=== PATIENT | male | born 1955 | race African-American/Black ===

== ENCOUNTER 2020-04-20 13:53 | Inpatient (IN) | payer MEDICARE, OTHER ==
[~2020-04-20] VITALS: Ht 165.1 cm; Wt 99.8 kg
[2020-04-20] MEDS: InsuLIN REG 1unit/0.01ml Soln (100units/ml) SC SCH (01:00)
[2020-04-20] MEDS: ENOXAPARIN SOD 100 MG/1 ML SYRINGE SC SCH (02:30)
[2020-04-20] MEDS: FAMOTIDINE 20 MG TAB PO SCH (02:30)
[2020-04-20 15:00] LABS: Basophils # (auto) 0.1 10 ^3/uL (0-0.2); Basophils % (auto) 0.6 % (0.0-2.0); Eosinophils # (auto) 0.1 10 ^3/uL (0-0.8); Eosinophils % (auto) 0.5 % (0.0-7.0); Hemoglobin 15.8 g/dL (13.5-17.5); Lymphocytes # (auto) 0.8 10 ^3/uL (0.4-5.4); Lymphocytes % (auto) 8.5 % (10.0-50.0); Mean Corpuscular Hemoglobin 31.1 pg (28.0-32.0); Mean Corpuscular Hgb Conc. 33.6 g/dL (32.0-36.0); Mean Corpuscular Volume 92.4 fL (80.0-100.0); Monocytes # (auto) 0.5 10 ^3/uL (0-1.3); Monocytes % (auto) 5.2 % (0.0-12.0); Neutrophils # (auto) 8.1 10 ^3/uL (1.6-8.6); Neutrophils % (auto) 85.2 % (37.0-80.0); Platelet Count (auto) 281 10^3/uL (140-450); Red Blood Cells 5.09 10^6/uL (4.5-5.90); Red Cell Distribution Width 14.6 % (11.8-14.3); White Blood Cell 9.5 10^3/uL (4.4-10.8)
[2020-04-20 15:17] LABS: INR 1.03 (0.9-1.15); Partial Thromboplastin Time 27.8 sec (23.0-31.2)
[2020-04-20 15:19] LABS: Albumin 3.8 g/dL (3.4-5.0); Calcium 8.9 mg/dL (8.5-10.1); Potassium 3.6 mmol/L (3.5-5.1)
[2020-04-20 15:26] LABS: BUN/Creatinine Ratio 6.8; Bilirubin, Total 0.3 mg/dL (0.2-1.0); Total Protein 7.2 g/dL (6.4-8.2)
[2020-04-20] MEDS ORDERED: ASPirin-EC 81 mg tab PO ONE (16:15)
[2020-04-20] MEDS ORDERED: METOPROLOL TARTRATE 1MG/1ML-5ML VIAL IV ONE (19:00)
[2020-04-20] MEDS ORDERED: METOPROLOL TARTRATE 25 MG TAB PO ONE (19:00)
[2020-04-20] MEDS ORDERED: NITROGLYCERIN 50MG/250ML 250 ML IV SCH (19:00)
[2020-04-20] MEDS ORDERED: traMADol HCL 50 MG TAB PO PRN (19:00)
[2020-04-20] MEDS ORDERED: NITROGLYCERIN 0.4 MG SL TAB SL PRN (19:00)
[2020-04-20] MEDS ORDERED: PROMETHAZINE HCL 25 MG/ML 1ML IV PRN (19:00)
[2020-04-20] MEDS ORDERED: TEMAZEPAM 15 MG CAP PO PRN (19:00)
[2020-04-20] MEDS ORDERED: NITROGLYCERIN 50MG/250ML 250 ML IV ONE (19:00)
[2020-04-20] MEDS ORDERED: LACTULOSE 20Gm/30ML SOLN PO PRN (19:00)
[2020-04-20] MEDS ORDERED: ACETAMINOPHEN 500 MG TAB PO PRN (19:00)
[2020-04-20] MEDS ORDERED: MORPHINE SULF INJ 2 MG/ML SYRINGE 1ML IV PRN ×2 (19:00)
[2020-04-20] MEDS ORDERED: DEXTROSE (50%) 50ML SYRG IV PRN (19:00)
[2020-04-20] MEDS: METOPROLOL TARTRATE 25 MG TAB PO SCH (22:00)
[2020-04-21] MEDS: ENOXAPARIN SOD 100 MG/1 ML SYRINGE SC SCH (02:48)
[2020-04-21 05:52] LABS: Basophils # (auto) 0.1 10 ^3/uL (0-0.2); Basophils % (auto) 0.8 % (0.0-2.0); Eosinophils # (auto) 0.1 10 ^3/uL (0-0.8); Eosinophils % (auto) 1.4 % (0.0-7.0); Hematocrit 45.3 % (41.0-53.0); Hemoglobin 14.7 g/dL (13.5-17.5); Lymphocytes # (auto) 2.4 10 ^3/uL (0.4-5.4); Lymphocytes % (auto) 28.5 % (10.0-50.0); Mean Corpuscular Hemoglobin 30.2 pg (28.0-32.0); Mean Corpuscular Hgb Conc. 32.3 g/dL (32.0-36.0); Mean Corpuscular Volume 93.5 fL (80.0-100.0); Monocytes # (auto) 0.8 10 ^3/uL (0-1.3); Monocytes % (auto) 9.3 % (0.0-12.0); Neutrophils # (auto) 5.1 10 ^3/uL (1.6-8.6); Nucleated Red Blood Cells % 0.1 %; Platelet Count (auto) 285 10^3/uL (140-450); Red Blood Cells 4.85 10^6/uL (4.5-5.90); Red Cell Distribution Width 14.8 % (11.8-14.3); White Blood Cell 8.5 10^3/uL (4.4-10.8)
[2020-04-21 06:11] LABS: Potassium 3.5 mmol/L (3.5-5.1)
[2020-04-21 06:48] LABS: Albumin 3.4 g/dL (3.4-5.0); BUN/Creatinine Ratio 8.9; Bilirubin, Total 0.4 mg/dL (0.2-1.0); Calcium 8.7 mg/dL (8.5-10.1); Total Protein 6.6 g/dL (6.4-8.2)
[2020-04-21] MEDS: ATORVASTATIN 20 MG TAB PO SCH ×2 (06:57→08:21)
[2020-04-21 07:30] VITALS: BP 138/66
[2020-04-21 08:10] LABS: Alcohol, Urine < 3.0 mg/dL (0-10); Barbiturate Scree,Urine NEGATIVE (NEGATIVE); Benzodiazephine Screen, Urine NEGATIVE (NEGATIVE); Cannabinoid Screen, Urine NEGATIVE (NEGATIVE); Cocaine Screen, Urine NEGATIVE (NEGATIVE); Opiate Scree,Urine NEGATIVE (NEGATIVE); Phencyclidine Screen, Urine NEGATIVE (NEGATIVE)
[2020-04-21 08:14] LABS: Amphetamine Screen, Urine NEGATIVE (NEGATIVE)
[2020-04-21] MEDS: ACCU-CHEK COMFORT CURVE STRIP VI SCH ×2 (08:21→08:41)
[2020-04-21] MEDS: InsuLIN REG 1unit/0.01ml Soln (100units/ml) SC SCH (08:41)
[2020-04-21] MEDS ORDERED: ENALAPRIL MALEATE 2.5 MG TAB PO SCH (10:00)
[2020-04-21] MEDS ORDERED: ASPirin 81 mg TAB PO SCH (10:00)
[2020-04-21] MEDS: METOPROLOL TARTRATE 25 MG TAB PO SCH (10:40)
[2020-04-21] MEDS: FAMOTIDINE 20 MG TAB PO SCH (10:40)
== END 2020-04-21 11:00 | disposition left against medical advice (07) | DRG 282 ==
LOC: EDBD 13:53 → ER 13:53 → TELE 18:56
PROVIDERS: ADMIT Internal Medicine; ATTEND Internal Medicine
DX: I21.4 Non-ST elevation (NSTEMI) myocardial infarction (principal); I16.0 Hypertensive urgency; I48.91 Unspecified atrial fibrillation; E78.5 Hyperlipidemia, unspecified; E66.01 Morbid (severe) obesity due to excess calories; F41.9 Anxiety disorder, unspecified; I50.9 Heart failure, unspecified; Z68.36 Body mass index [BMI] 36.0-36.9, adult; Z82.49 Family history of ischemic heart disease and other diseases of the circulatory system; Z83.3 Family history of diabetes mellitus; Z53.29 Procedure and treatment not carried out because of patient's decision for other reasons; E11.9 Type 2 diabetes mellitus without complications; I11.0 Hypertensive heart disease with heart failure; E11.65 Type 2 diabetes mellitus with hyperglycemia
CPT/HCPCS: 36415; 71045; 80053; 80061; 80307; 82550; 82962; 83036; 83880; 84443; 84484; 85025; 85379; 85610; 85652; 85730; 86141; 93005; G0378; J1815

== ENCOUNTER 2020-04-22 11:16 | Inpatient (IN) | payer MEDICARE, OTHER ==
[~2020-04-22] VITALS: Ht 165.1 cm; Wt 108.0 kg
[2020-04-22 12:44] LABS: CRP High Sensitivity 0.12 mg/dL (< 0.3)
[2020-04-22] MEDS ORDERED: ONDANSETRON HCL 4 MG/2 ML VIAL IV PRN (16:00)
[2020-04-22] MEDS ORDERED: IPRATROPIUM BROM 0.5 MG/2.5ML INH SOL NEB PRN (16:00)
[2020-04-22] MEDS ORDERED: hydrALAZINE HCL 20 MG/ML VL IV PRN (16:00)
[2020-04-22] MEDS ORDERED: HYDROcodone-ACET 5/325MG TAB PO PRN (16:00)
[2020-04-22] MEDS ORDERED: ACETAMINOPHEN 500 MG TAB PO PRN (16:00)
[2020-04-22] MEDS ORDERED: ALBUTEROL SULF 2.5 MG/0.5ML(0.5%) NEB SOLN NEB PRN (16:00)
[2020-04-22] MEDS ORDERED: NITROGLYCERIN 0.4 MG SL TAB SL PRN (16:00)
[2020-04-22] MEDS ORDERED: MORPHINE SULF INJ 2 MG/ML SYRINGE 1ML IV PRN ×2 (16:00)
[2020-04-23] VITALS (7 sets, daily range): BP systolic 126–152; BP diastolic 58–73
[2020-04-23 00:21] LABS: Basophils # (auto) 0.1 10 ^3/uL (0-0.2); Basophils % (auto) 1.7 % (0.0-2.0); Eosinophils # (auto) 0.2 10 ^3/uL (0-0.8); Hematocrit 45.3 % (41.0-53.0); Hemoglobin 15.1 g/dL (13.5-17.5); Lymphocytes # (auto) 2.5 10 ^3/uL (0.4-5.4); Mean Corpuscular Hemoglobin 30.9 pg (28.0-32.0); Mean Corpuscular Hgb Conc. 33.3 g/dL (32.0-36.0); Mean Corpuscular Volume 92.9 fL (80.0-100.0); Monocytes # (auto) 0.8 10 ^3/uL (0-1.3); Monocytes % (auto) 9.3 % (0.0-12.0); Neutrophils # (auto) 5.2 10 ^3/uL (1.6-8.6); Nucleated Red Blood Cells % 0.1 %; Platelet Count (auto) 269 10^3/uL (140-450); Red Blood Cells 4.87 10^6/uL (4.5-5.90); Red Cell Distribution Width 14.7 % (11.8-14.3); White Blood Cell 8.8 10^3/uL (4.4-10.8)
[2020-04-23] MEDS: ATORVASTATIN 20 MG TAB PO SCH ×2 (00:26→22:33)
[2020-04-23 00:40] LABS: BUN/Creatinine Ratio 9.7; Potassium 3.5 mmol/L (3.5-5.1)
[2020-04-23 00:41] LABS: Albumin 3.7 g/dL (3.4-5.0); Calcium 8.4 mg/dL (8.5-10.1)
[2020-04-23 00:45] LABS: Bilirubin, Total 0.4 mg/dL (0.2-1.0); Total Protein 7.2 g/dL (6.4-8.2)
--- NOTE | 2020-04-23 02:25 | NUR ---
Telemetry admit from ROSARIO TABOR admitted to Telemetry unit after NO SBAR received. Patient oriented to Jluis conrad RN, [facility] unit, 272 room, A bed, and unit policies regarding patient care and visiting hours. Patient now on continuous telemetry monitoring, tele box #63 and telemetry reading on arrival to unit is SINUS RHYTHM. Patient placed on bedside oxygen, weighed by bedscale and encouraged to call if they need something. All questions and concerns addressed, patient verbalized understanding. Note:
--- NOTE | 2020-04-23 03:41 | NUR ---
paged hospitalist to notify of patient requesting cpap machine for his sleep apnea.
[2020-04-23] MEDS ORDERED: ALBUAER3 IN (04:59)
--- NOTE | 2020-04-23 06:05 | NUR ---
PT ASSESSED FOR PRN TX. PT IS ON ROOM AIR, SPO2 92%, HR 76. NO S/S OF RESPIRATORY DISTRESS. PT AWARE TO HAVE RT PAGED IF NEEDED.
--- NOTE | 2020-04-23 07:30 | NUR ---
Opening Shift Note Report received and Assumed care of patient,awake,alert and oriented. No S/S of distress/SOB or pain. Instructed on POC,call light within reach,patient reminded instructed to call for assistance,verbalized understanding,will continue to monitor for changes Q1hr and PRN.
[2020-04-23] MEDS: ASPirin-EC 81 mg tab PO SCH (10:18)
[2020-04-23] MEDS: ENOXAPARIN SOD 40 MG/0.4 ML SYRINGE SC SCH (10:18)
[2020-04-23] MEDS: FAMOTIDINE 20 MG TAB PO SCH (10:18)
[2020-04-23] MEDS: LISINOPRIL 10 MG TAB PO SCH (10:19)
[2020-04-23 12:01] LABS: Basophils # (auto) 0.1 10 ^3/uL (0-0.2); Basophils % (auto) 0.7 % (0.0-2.0); Eosinophils # (auto) 0.1 10 ^3/uL (0-0.8); Eosinophils % (auto) 1.4 % (0.0-7.0); Hematocrit 44.8 % (41.0-53.0); Hemoglobin 14.8 g/dL (13.5-17.5); Lymphocytes # (auto) 1.8 10 ^3/uL (0.4-5.4); Mean Corpuscular Hemoglobin 30.6 pg (28.0-32.0); Mean Corpuscular Volume 92.7 fL (80.0-100.0); Monocytes # (auto) 0.8 10 ^3/uL (0-1.3); Monocytes % (auto) 8.9 % (0.0-12.0); Neutrophils # (auto) 6.2 10 ^3/uL (1.6-8.6); Nucleated Red Blood Cells % 0.2 %; Platelet Count (auto) 267 10^3/uL (140-450); Red Blood Cells 4.83 10^6/uL (4.5-5.90); Red Cell Distribution Width 14.4 % (11.8-14.3)
--- NOTE | 2020-04-23 12:15 | NUR ---
MD VISIT DR. Rosie MISTRY HERE TO SEE AND EXAMINED PATIENT,CARDIOLOGY CONSULT RE CALLED WITH DR. FORTUNE (DONE BY CHAIN TESTING MACHINE OPERATOR)
[2020-04-23 12:20] LABS: BUN/Creatinine Ratio 9.9; Calcium 9.2 mg/dL (8.5-10.1); Potassium 3.9 mmol/L (3.5-5.1)
--- NOTE | 2020-04-23 16:05 | NUR ---
DR. FORTUNE CALLED STATED UNABLE TO SEE THE PATIENT
--- NOTE | 2020-04-23 16:10 | NUR ---
FERNANDO CARDIOLOGY THERMAL SPRAY OPERATOR INFORMED WILL BE HERE TO SEE PATIENT
--- NOTE | 2020-04-23 16:26 | NUR ---
Zaid JAIMES RUG REPAIRER HERE TO SEE AND EXAMINED PATIENT,DISCUSSED PLAN OF CARE AND HEART CATH PROCEDURE IN A.M.
--- NOTE | 2020-04-23 22:00 | NUR ---
Patient refused to sign consents for heart cath, patient wants to know whats risks are involved with procedure before signing anything.
[2020-04-23] MEDS: METOPROLOL TARTRATE 25 MG TAB PO SCH (22:34)
[2020-04-24] VITALS (9 sets, daily range): BP systolic 108–145; BP diastolic 55–72
[2020-04-24 05:17] LABS: Urine Bacteria FEW /hpf (None Seen); Urine Blood Negative /uL (Negative); Urine Mucus FEW (None Seen); Urine Specific Gravity 1.013 (1.001-1.035); Urine WBC 2 /hpf (0 - 3)
--- NOTE | 2020-04-24 07:30 | NUR ---
Opening Shift Note Report received and Assumed care of patient,awake,alert and oriented. No S/S of distress/SOB or pain. Instructed on POC,heart cath procedure,NPO for expected procedure,call light within reach,patient reminded instructed to call for assistance,verbalized understanding,will continue to monitor for changes Q1hr and PRN.
[2020-04-24 07:50] LABS: INR 1.06 (0.9-1.15); Partial Thromboplastin Time 28.8 sec (23.0-31.2)
[2020-04-24 07:53] LABS: Calcium 8.9 mg/dL (8.5-10.1); Potassium 3.7 mmol/L (3.5-5.1)
[2020-04-24 07:54] LABS: BUN/Creatinine Ratio 10.4; Basophils # (auto) 0.1 10 ^3/uL (0-0.2); Basophils % (auto) 0.9 % (0.0-2.0); Eosinophils # (auto) 0.2 10 ^3/uL (0-0.8); Eosinophils % (auto) 2.3 % (0.0-7.0); Hematocrit 44.4 % (41.0-53.0); Hemoglobin 14.7 g/dL (13.5-17.5); Lymphocytes # (auto) 1.8 10 ^3/uL (0.4-5.4); Lymphocytes % (auto) 26.2 % (10.0-50.0); Mean Corpuscular Hemoglobin 30.6 pg (28.0-32.0); Mean Corpuscular Volume 92.7 fL (80.0-100.0); Monocytes # (auto) 0.7 10 ^3/uL (0-1.3); Monocytes % (auto) 9.7 % (0.0-12.0); Neutrophils # (auto) 4.2 10 ^3/uL (1.6-8.6); Neutrophils % (auto) 60.9 % (37.0-80.0); Nucleated Red Blood Cells % 0.1 %; Platelet Count (auto) 256 10^3/uL (140-450); Red Cell Distribution Width 14.5 % (11.8-14.3); White Blood Cell 6.8 10^3/uL (4.4-10.8)
--- NOTE | 2020-04-24 09:20 | NUR ---
PATIENT TRANSPORTED TO [facility] VIA BED REPORT GIVEN TO DANIEL GIBSON
--- NOTE | 2020-04-24 09:25 | NUR ---
DR. KNOX AT BEDSIDE SPOKE TO PATIENT AND EXPLAIN PROCEDURE RISK AND BENEFITS PATIENT VERBALIZED UNDERSTANDING,CONSENT SIGNED BY PATIENT.
[2020-04-24] MEDS ORDERED: IOHEXOL 350 MG/ML 100ML IJ ONE (09:39)
[2020-04-24] MEDS ORDERED: LIDOCAINE 2%HCL (LOCAL ANESTH.) INJ 20ML MDV ONE (09:39)
[2020-04-24] MEDS: ENOXAPARIN SOD 40 MG/0.4 ML SYRINGE SC SCH (10:00)
[2020-04-24] MEDS ORDERED: VERAPAMIL 2.5MG/ML INJ 2ML VIAL IV ONE (10:02)
[2020-04-24] MEDS ORDERED: fentaNYL CITRATE 100 MCG/2 ML VL ONE (10:02)
[2020-04-24] MEDS ORDERED: ANGIOMAX 250 MG VIAL IV ONE (10:02)
[2020-04-24] MEDS ORDERED: MIDAZOLAM HCL 1MG/1ML-2 ML VIAL ONE (10:03)
[2020-04-24] MEDS ORDERED: HEPARIN SODIUM (PORCINE) 5000 UNITS/ML 1ML VIAL ONE (10:03)
[2020-04-24] MEDS ORDERED: SODIUM CHL 0.9% 0 ML ONE (10:03)
--- NOTE | 2020-04-24 10:45 | NUR ---
Pt. received in Clinical Trial Head Post-Op awake and oriented to person, place and event. Respirations even and unlabored. VASC band intact on RIGHT wrist with no visible bleeding or oozing noted. Palpable RIGHT radial pulse, states has intermittent minimal numbness and tingling to RIGHT hand. Instructed re: importance of keeping RIGHT forearm rested. IV to LEFT hand intact; site benign. Pt. instructed re: procedure outcome and plan of care; verbalized understanding and is compliant. Currently denies discomfort, NAD noted.
--- NOTE | 2020-04-24 11:00 | NUR ---
RIGHT wrist VASC band unchanged with no visible bleeding or oozing noted. Palpable RIGHT radial pulse, denies numbness or tingling to RIGHT hand. Keeps RIGHT forearm rested as instructed. Tolerates water well. Currently denies discomfort, NAD noted.
--- NOTE | 2020-04-24 11:23 | NUR ---
RIGHT wrist VASC band unchanged and benign. Currently denies discomfort. Pt. is stable for transfer back to room. SBAR report given to Mariely James RN
--- NOTE | 2020-04-24 11:25 | NUR ---
REPORT RECEIVED FROM FRANCIA GIBSON S/P HEART CATH
--- NOTE | 2020-04-24 11:35 | NUR ---
PATIENT RECEIVED FROM PACU,VIA BED ACCOMPANIED BY WASTE WATER PLANT OPERATOR,RIGHT WRIST VASC IN PLACE,no visible bleeding or oozing noted. Palpable RIGHT radial pulse, denies numbness or tingling to RIGHT hand. Keeps RIGHT forearm rested as instructed. denies chest pain,no discomfort.
--- NOTE | 2020-04-24 11:35 | NUR ---
REMOVED 2 ML OF AIR FROM VASC BAND,NO BLEEDING ,WITH ADEQUATE CIRCULATION,SENSATION AND MOTOR FUNCTION NOTED
--- NOTE | 2020-04-24 11:40 | NUR ---
Pt. remains stable for transfer. Transported back to room via bed with assist by skyla Arroyo. Pt. endorsed to Mariely James RN.
--- NOTE | 2020-04-24 11:50 | NUR ---
REMOVED 2 ML OF AIR FROM VASC BAND,NO BLEEDING ,WITH ADEQUATE CIRCULATION,SENSATION AND MOTOR FUNCTION NOTED
--- NOTE | 2020-04-24 12:05 | NUR ---
REMOVED 2 ML OF AIR FROM VASC BAND,NO BLEEDING ,WITH ADEQUATE CIRCULATION,SENSATION AND MOTOR FUNCTION NOTED
--- NOTE | 2020-04-24 12:20 | NUR ---
REMOVED 2 ML OF AIR FROM VASC BAND,NO BLEEDING ,WITH ADEQUATE CIRCULATION,SENSATION AND MOTOR FUNCTION NOTED
--- NOTE | 2020-04-24 12:35 | NUR ---
REMOVED 2 ML OF AIR FROM VASC BAND,NO BLEEDING ,WITH ADEQUATE CIRCULATION,SENSATION AND MOTOR FUNCTION NOTED
[2020-04-24] MEDS: ASPirin-EC 81 mg tab PO SCH (12:39)
[2020-04-24] MEDS: METOPROLOL TARTRATE 25 MG TAB PO SCH ×2 (12:41→21:54)
[2020-04-24] MEDS: FAMOTIDINE 20 MG TAB PO SCH (12:41)
[2020-04-24] MEDS: LISINOPRIL 10 MG TAB PO SCH (12:42)
--- NOTE | 2020-04-24 12:50 | NUR ---
REMOVED 2 ML OF AIR FROM VASC BAND,NO BLEEDING ,WITH ADEQUATE CIRCULATION,SENSATION AND MOTOR FUNCTION NOTED
--- NOTE | 2020-04-24 12:58 | NUR ---
OOB,AMBULATES TO REST ROOM ,BACK TO BED TOLERATED ACTIVITY NO C/O CHEST PAIN
--- NOTE | 2020-04-24 13:05 | NUR ---
REMOVED 2 ML OF AIR FROM VASC BAND,NO BLEEDING ,WITH ADEQUATE CIRCULATION,SENSATION AND MOTOR FUNCTION NOTED
--- NOTE | 2020-04-24 13:20 | NUR ---
REMOVED 2 ML OF AIR FROM VASC BAND,NO BLEEDING ,WITH ADEQUATE CIRCULATION,SENSATION AND MOTOR FUNCTION NOTED
--- NOTE | 2020-04-24 13:35 | NUR ---
VASCULAR BAND COMPLETELY DEFLATED,BAND REMOVED,GAUZE AND TEGADERM DRESSING APPLIED,NO C/O PAIN,NO BLEEDING NOTED.
[2020-04-24] MEDS: SODIUM CHLOR 0.9% PF (SALINE LOCK) 10ML VIAL/SYR IV SCH ×2 (14:00→21:58)
--- NOTE | 2020-04-24 19:30 | NUR ---
Opening Shift Note Assumed care of patient, awake and alert. Patient laying down in bed with Bipap on. No S/S of distress/SOB or pain. Safety measures maintained by keeping the bed locked in lowest position, 2 side rails up, personal items and call light within reach. Right wrist dressing dry and intact. Instructed on POC and to call for assist PRN, will continue to monitor for changes Q1hr and PRN.
[2020-04-24] MEDS: ATORVASTATIN 20 MG TAB PO SCH (21:57)
[2020-04-25 05:35] VITALS: BP 141/52
[2020-04-25] MEDS: SODIUM CHLOR 0.9% PF (SALINE LOCK) 10ML VIAL/SYR IV SCH (06:11)
[2020-04-25 09:00] VITALS: BP 156/85
[2020-04-25] MEDS: FAMOTIDINE 20 MG TAB PO SCH (10:18)
[2020-04-25] MEDS: ASPirin-EC 81 mg tab PO SCH (10:19)
[2020-04-25] MEDS: METOPROLOL TARTRATE 25 MG TAB PO SCH (10:20)
[2020-04-25] MEDS: LISINOPRIL 10 MG TAB PO SCH (10:21)
[2020-04-25] MEDS: ENOXAPARIN SOD 40 MG/0.4 ML SYRINGE SC SCH (10:26)
--- NOTE | 2020-04-25 11:12 | NUR ---
MD AT BEDSIDE DR. Rosie MISTRY WAS IN TO SEE PATIENT AND MD LEFT ORDERS FOR PATIENT'S DISCHARGE AND PATIENT IS AWARE.
--- NOTE | 2020-04-25 11:44 | NUR ---
Assessment Patient is a 64-year-old male who is alert and oriented. Prior to admission patient reside home with family and functioned independently. Prior to admission patient could care for his own ADLs. Per patient he does not have any medical equipment now. Per patient he will return home to his prior living arrangements post discharge and family will transport him home at anytime on discharge day. Patient informed me he feels safe returning home and has great family support. Informed patient he has the right to participate in all discharge planning. Patient does not have an advance directive. Patient has been provided with an advance directive. Patient verbalize understanding d/c plan. Addendum: 04/25/20 at 1145 by GERMAN PATEL Amended: Links added.
[2020-04-25 12:47] VITALS: BP 142/76
--- NOTE | 2020-04-25 16:00 | NUR ---
Discharge instructions given as ordered. Encourage to follow up with PMD as instructed. All questions and concerns addressed. Patient verbalized understanding. Medication reconciliation form completed and copy given to patient. Home medications held in Pharmacy returned to patient. IV removed with catheter intact, pressure dressing applied. Telemetry unit returned to ICU. Patient taken to vehicle via wheelchair with all personal belongings, accompanied by staff . No distress noted at time of departure.
== END 2020-04-25 16:00 | disposition home or self-care (01) | DRG 280 ==
LOC: EDBD 11:16 → EDUNIT# 11:16 → ER 11:16 → OVERFLOW 15:59 → TELE-WESTW 04-23 02:25
PROVIDERS: ADMIT Nurse Practitioner Acute Care; ATTEND Family Medicine
PROC: 5A09357 Assistance with Respiratory Ventilation, Less than 24 Consecutive Hours, Continuous Positive Airway Pressure (ICD-10-PCS; 2020-04-23)
PROC: 4A023N7 Measurement of Cardiac Sampling and Pressure, Left Heart, Percutaneous Approach (ICD-10-PCS; principal; 2020-04-24)
PROC: B2111ZZ Fluoroscopy of Multiple Coronary Arteries using Low Osmolar Contrast (ICD-10-PCS; 2020-04-24)
PROC: B2151ZZ Fluoroscopy of Left Heart using Low Osmolar Contrast (ICD-10-PCS; 2020-04-24)
PROC: 5A09357 Assistance with Respiratory Ventilation, Less than 24 Consecutive Hours, Continuous Positive Airway Pressure (ICD-10-PCS; 2020-04-25)
DX: I21.4 Non-ST elevation (NSTEMI) myocardial infarction (principal); I50.33 Acute on chronic diastolic (congestive) heart failure; Z68.41 Body mass index [BMI] 40.0-44.9, adult; E78.5 Hyperlipidemia, unspecified; J44.9 Chronic obstructive pulmonary disease, unspecified; F41.9 Anxiety disorder, unspecified; E11.9 Type 2 diabetes mellitus without complications; E66.01 Morbid (severe) obesity due to excess calories; F17.210 Nicotine dependence, cigarettes, uncomplicated; I11.0 Hypertensive heart disease with heart failure; I48.0 Paroxysmal atrial fibrillation; Z20.828 Contact with and (suspected) exposure to other viral communicable diseases; Z79.84 Long term (current) use of oral hypoglycemic drugs; Z80.9 Family history of malignant neoplasm, unspecified; Z82.49 Family history of ischemic heart disease and other diseases of the circulatory system; Z86.73 Personal history of transient ischemic attack (TIA), and cerebral infarction without residual deficits; Z83.3 Family history of diabetes mellitus; Z91.19 Patient's noncompliance with other medical treatment and regimen; Z71.6 Tobacco abuse counseling
CPT/HCPCS: 36415; 71045; 80048; 80053; 81001; 82728; 84484; 85025; 85610; 85730; 86141; 86850; 86900; 86901; 87081; 87426; 93005; 93306; 94640; 94660; 99152; G0378; J2250

== ENCOUNTER 2020-10-20 21:14 | Emergency (ER) | payer MEDICARE, OTHER ==
[~2020-10-20] VITALS: Ht 165.1 cm; Wt 113.4 kg
[~2020-10-20 21:14] MED LIST: ALBUAER3 IN
[2020-10-20 21:15] VITALS: BP 177/83
[2020-10-20 22:46] LABS: Urine Bacteria NONE SEEN /hpf (None Seen); Urine Blood Negative /uL (Negative); Urine Mucus FEW (None Seen); Urine Specific Gravity 1.022 (1.001-1.035); Urine WBC 2 /hpf (0 - 3)
== END 2020-10-21 00:02 | disposition left against medical advice (07) ==
LOC: ER 21:16
DX: K92.1 Melena (principal); Z53.21 Procedure and treatment not carried out due to patient leaving prior to being seen by health care provider
CPT/HCPCS: 81001

== ENCOUNTER 2021-05-19 20:56 | Inpatient (IN) | payer MEDICARE ==
[~2021-05-19] VITALS: Ht 167.6 cm; Wt 135.6 kg
[2021-05-19 23:24] LABS: Basophils # (auto) 0.1 10 ^3/uL (0-0.2); Eosinophils # (auto) 0.2 10 ^3/uL (0-0.8); Eosinophils % (auto) 1.8 % (0.0-7.0); Hematocrit 42.5 % (41.0-53.0); Hemoglobin 14.1 g/dL (13.5-17.5); Lymphocytes # (auto) 1.5 10 ^3/uL (0.4-5.4); Lymphocytes % (auto) 16.7 % (10.0-50.0); Mean Corpuscular Hgb Conc. 33.2 g/dL (32.0-36.0); Mean Corpuscular Volume 90.3 fL (80.0-100.0); Monocytes # (auto) 0.8 10 ^3/uL (0-1.3); Monocytes % (auto) 8.8 % (0.0-12.0); Neutrophils # (auto) 6.3 10 ^3/uL (1.6-8.6); Neutrophils % (auto) 71.7 % (37.0-80.0); Nucleated Red Blood Cells % 0.1 %; Red Blood Cells 4.71 10^6/uL (4.5-5.90); Red Cell Distribution Width 14.2 % (11.8-14.3); White Blood Cell 8.7 10^3/uL (4.4-10.8)
[2021-05-20 00:03] LABS: Albumin 3.4 g/dL (3.4-5.0); BUN/Creatinine Ratio 10.6; Bilirubin, Total 0.2 mg/dL (0.2-1.0); Total Protein 6.5 g/dL (6.4-8.2)
[2021-05-20] MEDS ORDERED: ASPirin 325 MG TAB PO ONE (01:00)
[2021-05-20] MEDS ORDERED: ENOXAPARIN SOD 150 MG/1 ML SYRINGE SC ONE (01:00)
[2021-05-20] MEDS ORDERED: ATORVASTATIN 20 MG TAB PO ONE (01:15)
[2021-05-20] MEDS ORDERED: ONDANSETRON HCL 4 MG/2 ML VIAL IV PRN (01:15)
[2021-05-20] MEDS ORDERED: DEXTROSE (50%) 50ML SYRG IV PRN (01:15)
[2021-05-20] MEDS ORDERED: MORPHINE SULFATE INJECTION 2 MG/ML SYRG IV PRN (01:15)
[2021-05-20] MEDS ORDERED: NITROGLYCERIN 0.4 MG SL TAB SL PRN (01:15)
[2021-05-20 03:28] VITALS: BP 132/52
[2021-05-20 05:00] VITALS: BP 132/52
[2021-05-20] MEDS: InsuLIN REG 1unit/0.01ml Soln (100units/ml) SC SCH ×2 (05:47→11:38)
[2021-05-20] MEDS: ACCU-CHEK COMFORT CURVE STRIP VI SCH ×2 (05:47→11:37)
[2021-05-20 09:00] VITALS: BP 141/75
[2021-05-20] MEDS ORDERED: ENOXAPARIN SOD 40 MG/0.4 ML SYRINGE SC SCH (10:00)
[2021-05-20] MEDS ORDERED: PANTOPRAZOLE 40 MG TAB PO SCH (10:00)
[2021-05-20] MEDS ORDERED: ASPirin 81 mg TAB PO SCH (10:00)
[2021-05-20] MEDS ORDERED: IPRATROPIUM BROM 0.5 MG/2.5ML INH SOL NEB SCH (12:00)
[2021-05-20 13:00] VITALS: BP 126/52
[2021-05-20] MEDS ORDERED: ATORVASTATIN 20 MG TAB PO SCH (22:00)
== END 2021-05-20 17:00 | disposition home or self-care (01) | DRG 280 ==
LOC: EDBD 20:56 → ER 20:58 → TELE 05-20 01:07 → TELE-WESTW 05-20 02:53
PROVIDERS: ADMIT Nurse Practitioner; ATTEND Internal Medicine
DX: I10 Essential (primary) hypertension (principal); N17.0 Acute kidney failure with tubular necrosis; I21.A1 Myocardial infarction type 2; D68.9 Coagulation defect, unspecified; Z68.42 Body mass index [BMI] 45.0-49.9, adult; I50.32 Chronic diastolic (congestive) heart failure; I13.0 Hypertensive heart and chronic kidney disease with heart failure and stage 1 through stage 4 chronic kidney disease, or unspecified chronic kidney disease; N18.2 Chronic kidney disease, stage 2 (mild); I95.9 Hypotension, unspecified; E66.01 Morbid (severe) obesity due to excess calories; I25.10 Atherosclerotic heart disease of native coronary artery without angina pectoris; J44.9 Chronic obstructive pulmonary disease, unspecified; I48.91 Unspecified atrial fibrillation; Z20.822 Contact with and (suspected) exposure to COVID-19; E11.22 Type 2 diabetes mellitus with diabetic chronic kidney disease; F41.9 Anxiety disorder, unspecified; K21.9 Gastro-esophageal reflux disease without esophagitis; I25.2 Old myocardial infarction; Z72.0 Tobacco use; Z79.01 Long term (current) use of anticoagulants; Z80.9 Family history of malignant neoplasm, unspecified; Z82.49 Family history of ischemic heart disease and other diseases of the circulatory system; Z83.3 Family history of diabetes mellitus
CPT/HCPCS: 36415; 71045; 80053; 82962; 83036; 83880; 84484; 85025; 85379; 87426; 93005; 93306; 94640; 96372; G0378; J1815

== ENCOUNTER 2021-06-02 05:19 | Inpatient (IN) | payer MEDICARE, MEDICAID ==
[~2021-06-02] VITALS: Ht 165.1 cm; Wt 106.3 kg
[2021-06-02] MEDS ORDERED: FUROSEMIDE 20 MG TAB PO ONE (08:00)
[2021-06-02] MEDS ORDERED: cloNIDine HCL 0.1 MG TAB PO ONE (08:00)
[2021-06-02 08:14] LABS: Urine Bacteria NONE SEEN /hpf (None Seen); Urine Blood Negative /uL (Negative); Urine Specific Gravity 1.004 (1.001-1.035); Urine WBC 1 /hpf (0 - 3)
[2021-06-02 09:20] LABS: Basophils # (auto) 0.1 10 ^3/uL (0-0.2); Basophils % (auto) 0.9 % (0.0-2.0); Eosinophils # (auto) 0.1 10 ^3/uL (0-0.8); Eosinophils % (auto) 0.5 % (0.0-7.0); Hematocrit 45.5 % (41.0-53.0); Hemoglobin 14.8 g/dL (13.5-17.5); Lymphocytes # (auto) 1.5 10 ^3/uL (0.4-5.4); Lymphocytes % (auto) 12.7 % (10.0-50.0); Mean Corpuscular Hemoglobin 29.2 pg (28.0-32.0); Mean Corpuscular Hgb Conc. 32.5 g/dL (32.0-36.0); Mean Corpuscular Volume 89.9 fL (80.0-100.0); Monocytes # (auto) 0.5 10 ^3/uL (0-1.3); Monocytes % (auto) 4.3 % (0.0-12.0); Neutrophils # (auto) 9.9 10 ^3/uL (1.6-8.6); Neutrophils % (auto) 81.6 % (37.0-80.0); Red Blood Cells 5.07 10^6/uL (4.5-5.90); Red Cell Distribution Width 14.8 % (11.8-14.3); White Blood Cell 12.2 10^3/uL (4.4-10.8)
[2021-06-02 09:32] LABS: Albumin 4.2 g/dL (3.4-5.0); Calcium 9.1 mg/dL (8.5-10.1)
[2021-06-02 09:38] LABS: BUN/Creatinine Ratio 10.2; Bilirubin, Total 0.5 mg/dL (0.2-1.0); Total Protein 7.9 g/dL (6.4-8.2)
[2021-06-02] MEDS ORDERED: LABETALOL HCL 5 MG/ML 4ML SYRINGE IV ONE (12:00)
[2021-06-02] MEDS ORDERED: amLODIPine BESYLATE 5 MG TAB PO ONE (14:15)
[2021-06-02] MEDS ORDERED: amLODIPine BESYLATE 5 MG TAB ONE (14:16)
[2021-06-02] MEDS ORDERED: PANTOPRAZOLE 40 MG TAB PO ONE (17:00)
[2021-06-02] MEDS ORDERED: LACTULOSE 20Gm/30ML SOLN PO ONE (17:00)
[2021-06-02] MEDS ORDERED: ACETAMINOPHEN 325 MG TAB PO PRN (21:00)
[2021-06-02] MEDS ORDERED: DEXTROSE (50%) 50ML SYRG IV PRN (21:00)
[2021-06-02] MEDS ORDERED: NITROGLYCERIN 0.4 MG SL TAB SL PRN (21:00)
[2021-06-02] MEDS ORDERED: cloNIDine HCL 0.1 MG TAB PO PRN (21:00)
[2021-06-02] MEDS ORDERED: ONDANSETRON HCL 4 MG/2 ML VIAL IV PRN (21:00)
[2021-06-02] MEDS ORDERED: ALBUTEROL SULF 2.5 MG/0.5ML(0.5%) NEB SOLN NEB PRN (21:00)
[2021-06-02] MEDS ORDERED: MORPHINE SULFATE INJECTION 2 MG/ML SYRG IV PRN (21:00)
[2021-06-02] MEDS: ACCU-CHEK COMFORT CURVE STRIP VI SCH (22:26)
[2021-06-02] MEDS: InsuLIN REG 1unit/0.01ml Soln (100units/ml) SC SCH (22:28)
[2021-06-02] MEDS: ATORVASTATIN 20 MG TAB PO SCH (22:36)
[2021-06-02] MEDS: TEMAZEPAM 15 MG CAP PO PRN (22:58)
[2021-06-03 01:30] VITALS: BP 146/78
[2021-06-03] MEDS ORDERED: OMEG100062 PO (04:30)
[2021-06-03] MEDS ORDERED: BUPR-160 PO (04:30)
[2021-06-03] MEDS ORDERED: ALOG1TAB2 PO (04:30)
[2021-06-03] MEDS ORDERED: CLIN150C PO (04:30)
[2021-06-03] MEDS ORDERED: ATOR-47 PO (04:30)
[2021-06-03] MEDS ORDERED: ALBUAER3 IN (04:30)
[2021-06-03] MEDS ORDERED: TERA10CA36 PO (04:30)
[2021-06-03] MEDS ORDERED: FLUT1AER5 IN (04:30)
[2021-06-03] MEDS ORDERED: NIFE1TAB31 PO (04:30)
[2021-06-03] MEDS ORDERED: APIX5TAB PO (04:30)
[2021-06-03] MEDS ORDERED: ASPI1TAB20 PO (04:30)
[2021-06-03] MEDS ORDERED: MELA3TAB27 PO (04:30)
[2021-06-03] MEDS ORDERED: IPRAAER6 IN (04:30)
[2021-06-03] MEDS ORDERED: SERT50TA19 PO (04:30)
[2021-06-03] MEDS ORDERED: TRAZ100T3 PO (04:30)
[2021-06-03] MEDS ORDERED: METF-370 PO (04:30)
[2021-06-03] MEDS ORDERED: LISI40TA11 PO (04:30)
[2021-06-03] MEDS ORDERED: [UNRECOGNIZED DRUG - CODE] PO (04:30)
[2021-06-03] MEDS ORDERED: SPIR25TA8 PO (04:30)
[2021-06-03] MEDS ORDERED: CARV12.544 PO (04:30)
[2021-06-03] MEDS ORDERED: BUDE1AER5 IN (04:35)
[2021-06-03] MEDS: ACCU-CHEK COMFORT CURVE STRIP VI SCH ×4 (06:02→22:26)
[2021-06-03] MEDS: InsuLIN REG 1unit/0.01ml Soln (100units/ml) SC SCH ×4 (06:05→22:41)
[2021-06-03 06:21] LABS: Basophils # (auto) 0 10 ^3/uL (0-0.2); Basophils % (auto) 0.5 % (0.0-2.0); Eosinophils # (auto) 0.2 10 ^3/uL (0-0.8); Eosinophils % (auto) 1.9 % (0.0-7.0); Hematocrit 41.7 % (41.0-53.0); Hemoglobin 14.1 g/dL (13.5-17.5); Lymphocytes # (auto) 2.4 10 ^3/uL (0.4-5.4); Lymphocytes % (auto) 25.3 % (10.0-50.0); Mean Corpuscular Hemoglobin 29.9 pg (28.0-32.0); Mean Corpuscular Hgb Conc. 33.8 g/dL (32.0-36.0); Mean Corpuscular Volume 88.6 fL (80.0-100.0); Monocytes # (auto) 0.9 10 ^3/uL (0-1.3); Neutrophils % (auto) 63.3 % (37.0-80.0); Nucleated Red Blood Cells % 0.1 %; Red Blood Cells 4.71 10^6/uL (4.5-5.90); Red Cell Distribution Width 14.5 % (11.8-14.3); White Blood Cell 9.5 10^3/uL (4.4-10.8)
[2021-06-03 06:50] LABS: Calcium 9.3 mg/dL (8.5-10.1); Potassium 3.6 mmol/L (3.5-5.1)
[2021-06-03 06:53] LABS: BUN/Creatinine Ratio 9.9
[2021-06-03 09:00] VITALS: BP 157/82
[2021-06-03] MEDS: ASPirin 81 mg TAB PO SCH (10:00)
[2021-06-03] MEDS ORDERED: PANTOPRAZOLE 40 MG TAB PO SCH (10:00)
[2021-06-03] MEDS: amLODIPine BESYLATE 5 MG TAB PO SCH (10:00)
[2021-06-03] MEDS: LOSARTAN POTASSIUM 50 MG TAB PO SCH ×2 (10:45→22:28)
[2021-06-03] MEDS ORDERED: AZITHROMYCIN 250 MG TAB PO ONE (11:00)
[2021-06-03] MEDS ORDERED: SERTRALINE HCL 50 MG TAB PO ONE (11:00)
[2021-06-03] MEDS ORDERED: CARVEDILOL 12.5 MG TAB PO ONE (11:00)
[2021-06-03] MEDS ORDERED: ALBUTEROL SULF 2.5 MG/0.5ML(0.5%) NEB SOLN NEB SCH (12:00)
[2021-06-03] MEDS: IPRATROPIUM BROM 0.5 MG/2.5ML INH SOL NEB SCH ×2 (12:45→18:52)
[2021-06-03] MEDS: ALBUTEROL SULF 2.5 MG/0.5ML(0.5%) NEB SOLN NEB SCH ×2 (12:45→18:51)
[2021-06-03 13:00] VITALS: BP 154/83
[2021-06-03 17:00] VITALS: BP 155/87
[2021-06-03 22:00] VITALS: BP 165/81
[2021-06-03] MEDS ORDERED: METOPROLOL TARTRATE 25 MG TAB PO SCH (22:00)
[2021-06-03] MEDS: TEMAZEPAM 15 MG CAP PO PRN (22:27)
[2021-06-03] MEDS: CARVEDILOL 12.5 MG TAB PO SCH (22:27)
[2021-06-03] MEDS: ATORVASTATIN 20 MG TAB PO SCH (22:28)
[2021-06-03] MEDS: APIXABAN 5 MG TAB PO SCH (22:28)
[2021-06-04 05:00] VITALS: BP 142/75
[2021-06-04] MEDS: ACCU-CHEK COMFORT CURVE STRIP VI SCH ×2 (05:26→12:26)
[2021-06-04] MEDS: InsuLIN REG 1unit/0.01ml Soln (100units/ml) SC SCH ×2 (06:08→11:30)
[2021-06-04 08:37] VITALS: BP 124/59
[2021-06-04] MEDS: LOSARTAN POTASSIUM 50 MG TAB PO SCH (10:00)
[2021-06-04] MEDS ORDERED: AZITHROMYCIN 250 MG TAB PO SCH (10:00)
[2021-06-04] MEDS: CARVEDILOL 12.5 MG TAB PO SCH (10:00)
[2021-06-04] MEDS: ASPirin 81 mg TAB PO SCH (10:00)
[2021-06-04] MEDS ORDERED: SERTRALINE HCL 50 MG TAB PO SCH (10:00)
[2021-06-04] MEDS: APIXABAN 5 MG TAB PO SCH (10:01)
[2021-06-04] MEDS: amLODIPine BESYLATE 5 MG TAB PO SCH (10:01)
[2021-06-04 11:51] VITALS: BP 160/80
[2021-06-04] MEDS: IPRATROPIUM BROM 0.5 MG/2.5ML INH SOL NEB SCH (16:06)
[2021-06-04] MEDS: ALBUTEROL SULF 2.5 MG/0.5ML(0.5%) NEB SOLN NEB SCH (16:06)
[2021-06-04 16:41] VITALS: BP 142/81
== END 2021-06-04 16:02 | disposition home or self-care (01) | DRG 281 ==
LOC: EDBD 05:19 → ER 05:19 → TELE 20:52 → TELE-CENTR 23:56
PROVIDERS: ADMIT Nurse Practitioner; ATTEND Internal Medicine
DX: I16.0 Hypertensive urgency (principal); I21.A1 Myocardial infarction type 2; D68.69 Other thrombophilia; J44.1 Chronic obstructive pulmonary disease with (acute) exacerbation; J98.11 Atelectasis; I50.32 Chronic diastolic (congestive) heart failure; E66.01 Morbid (severe) obesity due to excess calories; E11.9 Type 2 diabetes mellitus without complications; E78.5 Hyperlipidemia, unspecified; F32.A Depression, unspecified; F41.9 Anxiety disorder, unspecified; I11.0 Hypertensive heart disease with heart failure; I25.10 Atherosclerotic heart disease of native coronary artery without angina pectoris; I48.91 Unspecified atrial fibrillation; Z20.822 Contact with and (suspected) exposure to COVID-19; Z80.3 Family history of malignant neoplasm of breast; Z81.8 Family history of other mental and behavioral disorders; Z82.49 Family history of ischemic heart disease and other diseases of the circulatory system; Z83.3 Family history of diabetes mellitus; Z86.73 Personal history of transient ischemic attack (TIA), and cerebral infarction without residual deficits; Z91.11 Patient's noncompliance with dietary regimen; Z91.19 Patient's noncompliance with other medical treatment and regimen; K21.9 Gastro-esophageal reflux disease without esophagitis; Z91.14 Patient's other noncompliance with medication regimen; Z72.0 Tobacco use; Z68.39 Body mass index [BMI] 39.0-39.9, adult
CPT/HCPCS: 36415; 71045; 80048; 80053; 81001; 82962; 83880; 84484; 85025; 87426; 93005; 94640; 96374; G0378; J1815; J3490

== ENCOUNTER 2021-09-14 15:15 | Inpatient (IN) | payer MEDICARE, MEDICAID ==
[~2021-09-14] VITALS: Ht 170.2 cm; Wt 107.8 kg
[~2021-09-14 15:15] MED LIST changes: +ALOG1TAB2 PO; +APIX5TAB PO; +ASPI1TAB20 PO; +ATOR-47 PO; +BUDE1AER5 IN; +BUPR-160 PO; +CARV12.544 PO; +CLIN150C PO; +FLUT1AER5 IN; +IPRAAER6 IN; +LISI40TA11 PO; +MELA3TAB27 PO; +METF-370 PO; +NIFE1TAB31 PO; +OMEG100062 PO; +SERT50TA19 PO; +SPIR25TA8 PO; +TERA10CA36 PO; +TRAZ100T3 PO; +[UNRECOGNIZED DRUG - CODE] PO
[2021-09-14 16:43] LABS: Hemoglobin 12.2 g/dL (13.5-17.5); Mean Corpuscular Hemoglobin 28.2 pg (28.0-32.0); Mean Corpuscular Hgb Conc. 32.8 g/dL (32.0-36.0); Red Blood Cells 4.31 10^6/uL (4.5-5.90); Red Cell Distribution Width 15.1 % (11.8-14.3); White Blood Cell 24.2 10^3/uL (4.4-10.8)
[2021-09-14 16:46] LABS: Basophils % (manual) 0 (0.0-2.0); Blast Cells 0; Eosinophils % (manual) 0 (0-7); Myelocytes % 0; Promyelocytes % 0; Reactive Lymphocytes 0
[2021-09-14 17:01] LABS: Albumin 2.3 g/dL (3.4-5.0); BUN/Creatinine Ratio 7.7; Calcium 8.9 mg/dL (8.5-10.1); Potassium 4.1 mmol/L (3.5-5.1)
[2021-09-14 17:04] LABS: Bilirubin, Total 0.8 mg/dL (0.2-1.0)
[2021-09-14] MEDS ORDERED: CEFEPIME 2 GM in SODIUM CHL 0.9% 50 ML IV ONE (18:00)
[2021-09-14 18:07] LABS: Band Neutrophils % (manual) 10; Lymphocytes % (manual) 8 (10.0-50.0); Metamyelocytes % 1; Monocytes % (manual) 7 (0-12)
[2021-09-14] MEDS ORDERED: CEFTRIAXONE SODIUM 2 GM in D5W 5% 50 ML IV ONE (18:15)
[2021-09-14] MEDS ORDERED: SODIUM CHLORIDE 0.9% 1,000 ML IV ONE (18:15)
[2021-09-14] MEDS ORDERED: InsuLIN REG 1unit/0.01ml Soln (100units/ml) IV ONE (18:15)
[2021-09-14 18:36] LABS: Urine Bacteria NONE SEEN /hpf (None Seen); Urine Blood 1+ /uL (Negative); Urine Mucus FEW (None Seen); Urine Specific Gravity 1.031 (1.001-1.035); Urine WBC 20 /hpf (0 - 3)
[2021-09-14] MEDS: ACCU-CHEK COMFORT CURVE STRIP VI SCH (19:45)
[2021-09-14] MEDS ORDERED: DEXTROSE (50%) 50ML SYRG IV PRN (20:00)
[2021-09-14] MEDS: InsuLIN REG 1unit/0.01ml Soln (100units/ml) SC SCH (20:11)
[2021-09-14] MEDS ORDERED: NITROGLYCERIN 0.4 MG SL TAB SL PRN (21:30)
[2021-09-14] MEDS ORDERED: MORPHINE SULFATE INJECTION 2 MG/ML SYRG IV PRN (21:30)
[2021-09-14] MEDS ORDERED: ONDANSETRON HCL 4 MG/2 ML VIAL IV PRN (21:30)
[2021-09-14] MEDS ORDERED: ALBUTEROL SULF 2.5 MG/0.5ML(0.5%) NEB SOLN NEB PRN (21:30)
[2021-09-14] MEDS: ATORVASTATIN 20 MG TAB PO SCH (22:28)
[2021-09-14] MEDS: APIXABAN 5 MG TAB PO SCH (22:28)
[2021-09-14] MEDS: CARVEDILOL 12.5 MG TAB PO SCH (22:29)
[2021-09-14] MEDS: ACETAMINOPHEN 325 MG TAB PO PRN (23:07)
[2021-09-15] VITALS (8 sets, daily range): BP systolic 108–136; BP diastolic 49–63
[2021-09-15] MEDS: ACCU-CHEK COMFORT CURVE STRIP VI SCH ×6 (00:07→20:00)
[2021-09-15] MEDS: InsuLIN REG 1unit/0.01ml Soln (100units/ml) SC SCH ×6 (00:08→20:00)
[2021-09-15 05:43] LABS: Basophils # (auto) 0 10 ^3/uL (0-0.2); Basophils % (auto) 0.1 % (0.0-2.0); Eosinophils # (auto) 0 10 ^3/uL (0-0.8); Eosinophils % (auto) 0.1 % (0.0-7.0); Hematocrit 34.9 % (41.0-53.0); Hemoglobin 11.6 g/dL (13.5-17.5); Lymphocytes % (auto) 4.7 % (10.0-50.0); Mean Corpuscular Hemoglobin 28.6 pg (28.0-32.0); Mean Corpuscular Hgb Conc. 33.1 g/dL (32.0-36.0); Mean Corpuscular Volume 86.4 fL (80.0-100.0); Monocytes # (auto) 2.4 10 ^3/uL (0-1.3); Monocytes % (auto) 10.8 % (0.0-12.0); Neutrophils # (auto) 18.5 10 ^3/uL (1.6-8.6); Neutrophils % (auto) 84.3 % (37.0-80.0); Red Blood Cells 4.04 10^6/uL (4.5-5.90); Red Cell Distribution Width 14.8 % (11.8-14.3); White Blood Cell 21.9 10^3/uL (4.4-10.8)
[2021-09-15 05:52] LABS: BUN/Creatinine Ratio 12.8; Calcium 8.4 mg/dL (8.5-10.1); Potassium 3.7 mmol/L (3.5-5.1)
[2021-09-15] MEDS: cefTRIAXone 1GM/50ML D5W 50 ML IV SCH (09:10)
[2021-09-15] MEDS: TEMAZEPAM 15 MG CAP PO PRN ×2 (09:11→22:56)
[2021-09-15] MEDS: APIXABAN 5 MG TAB PO SCH ×2 (09:13→22:56)
[2021-09-15] MEDS: LISINOPRIL 20 MG TAB PO SCH (09:15)
[2021-09-15] MEDS: SERTRALINE HCL 50 MG TAB PO SCH (09:15)
[2021-09-15] MEDS: ENOXAPARIN SOD 40 MG/0.4 ML SYRINGE SC SCH (09:16)
[2021-09-15] MEDS: ASPirin 81 mg TAB PO SCH (09:17)
[2021-09-15] MEDS: NIFEdipine ER 30 MG TAB PO SCH (09:18)
[2021-09-15] MEDS: SPIRONOLACTONE 25 MG TAB PO SCH (09:32)
[2021-09-15] MEDS: CARVEDILOL 12.5 MG TAB PO SCH ×2 (09:33→22:56)
[2021-09-15] MEDS ORDERED: FUROSEMIDE 40 MG/4 ML VIAL IV ONE (10:00)
[2021-09-15] MEDS ORDERED: DEXTROSE (50%) 50ML SYRG IV PRN (12:00)
[2021-09-15 13:54] LABS: Magnesium 2.4 mg/dL (1.6-2.6)
[2021-09-15] MEDS: FUROSEMIDE 40 MG/4 ML VIAL IV SCH (18:02)
[2021-09-15] MEDS: ATORVASTATIN 20 MG TAB PO SCH (22:56)
[2021-09-16 05:00] VITALS: BP 111/67
[2021-09-16] MEDS: FUROSEMIDE 40 MG/4 ML VIAL IV SCH ×3 (05:19→18:53)
[2021-09-16] MEDS: ACCU-CHEK COMFORT CURVE STRIP VI SCH ×6 (05:30→21:59)
[2021-09-16] MEDS: InsuLIN REG 1unit/0.01ml Soln (100units/ml) SC SCH ×6 (05:30→22:10)
[2021-09-16 05:48] LABS: Albumin 1.8 g/dL (3.4-5.0); Calcium 8.2 mg/dL (8.5-10.1); Potassium 3.4 mmol/L (3.5-5.1)
[2021-09-16 05:51] LABS: BUN/Creatinine Ratio 14.3; Bilirubin, Total 0.7 mg/dL (0.2-1.0); Total Protein 6.6 g/dL (6.4-8.2)
[2021-09-16 06:04] LABS: Basophils # (auto) 0 10 ^3/uL (0-0.2); Basophils % (auto) 0.2 % (0.0-2.0); Eosinophils # (auto) 0.1 10 ^3/uL (0-0.8); Eosinophils % (auto) 0.3 % (0.0-7.0); Hematocrit 33.1 % (41.0-53.0); Hemoglobin 11.3 g/dL (13.5-17.5); Lymphocytes # (auto) 1.1 10 ^3/uL (0.4-5.4); Lymphocytes % (auto) 5.4 % (10.0-50.0); Mean Corpuscular Hemoglobin 28.7 pg (28.0-32.0); Mean Corpuscular Volume 84.6 fL (80.0-100.0); Monocytes # (auto) 1.9 10 ^3/uL (0-1.3); Monocytes % (auto) 9.1 % (0.0-12.0); Neutrophils # (auto) 17.9 10 ^3/uL (1.6-8.6); Red Blood Cells 3.91 10^6/uL (4.5-5.90); Red Cell Distribution Width 15.2 % (11.8-14.3); White Blood Cell 21.1 10^3/uL (4.4-10.8)
[2021-09-16] MEDS ORDERED: POTASSIUM CHL 20 Meq TABLET PO ONE (09:45)
[2021-09-16] MEDS: APIXABAN 5 MG TAB PO SCH ×2 (10:00→21:59)
[2021-09-16] MEDS: cefTRIAXone 1GM/50ML D5W 50 ML IV SCH (11:31)
[2021-09-16] MEDS: SPIRONOLACTONE 25 MG TAB PO SCH (11:32)
[2021-09-16] MEDS: ASPirin 81 mg TAB PO SCH (11:32)
[2021-09-16] MEDS: CARVEDILOL 12.5 MG TAB PO SCH ×2 (11:33→22:01)
[2021-09-16] MEDS: NIFEdipine ER 30 MG TAB PO SCH (11:34)
[2021-09-16] MEDS: SERTRALINE HCL 50 MG TAB PO SCH (11:35)
[2021-09-16] MEDS: LISINOPRIL 20 MG TAB PO SCH (11:35)
[2021-09-16] MEDS: ENOXAPARIN SOD 40 MG/0.4 ML SYRINGE SC SCH (11:35)
[2021-09-16 17:00] VITALS: BP 133/65
[2021-09-16 20:00] VITALS: BP 121/54
[2021-09-16] MEDS: ATORVASTATIN 20 MG TAB PO SCH (21:59)
[2021-09-16 22:00] VITALS: BP 129/54
[2021-09-17] MEDS: ACCU-CHEK COMFORT CURVE STRIP VI SCH ×6 (03:57→20:17)
[2021-09-17] MEDS: InsuLIN REG 1unit/0.01ml Soln (100units/ml) SC SCH ×6 (04:11→20:18)
[2021-09-17 05:42] VITALS: BP 94/54
[2021-09-17 06:01] LABS: Basophils # (auto) 0 10 ^3/uL (0-0.2); Basophils % (auto) 0.1 % (0.0-2.0); Eosinophils # (auto) 0.1 10 ^3/uL (0-0.8); Eosinophils % (auto) 0.6 % (0.0-7.0); Hematocrit 32.5 % (41.0-53.0); Hemoglobin 10.9 g/dL (13.5-17.5); Lymphocytes # (auto) 1.2 10 ^3/uL (0.4-5.4); Lymphocytes % (auto) 6.5 % (10.0-50.0); Mean Corpuscular Hemoglobin 28.6 pg (28.0-32.0); Mean Corpuscular Hgb Conc. 33.7 g/dL (32.0-36.0); Mean Corpuscular Volume 84.9 fL (80.0-100.0); Monocytes # (auto) 2.1 10 ^3/uL (0-1.3); Monocytes % (auto) 11.9 % (0.0-12.0); Neutrophils # (auto) 14.5 10 ^3/uL (1.6-8.6); Neutrophils % (auto) 80.9 % (37.0-80.0); Red Blood Cells 3.82 10^6/uL (4.5-5.90); Red Cell Distribution Width 15.1 % (11.8-14.3); White Blood Cell 17.9 10^3/uL (4.4-10.8)
[2021-09-17 06:16] LABS: Albumin 1.7 g/dL (3.4-5.0); Calcium 8.1 mg/dL (8.5-10.1); Potassium 3.2 mmol/L (3.5-5.1)
[2021-09-17 06:19] LABS: BUN/Creatinine Ratio 16.3; Bilirubin, Total 0.6 mg/dL (0.2-1.0); Total Protein 6.4 g/dL (6.4-8.2)
[2021-09-17 09:00] VITALS: BP 133/52
[2021-09-17] MEDS: SERTRALINE HCL 50 MG TAB PO SCH (09:21)
[2021-09-17] MEDS: ENOXAPARIN SOD 40 MG/0.4 ML SYRINGE SC SCH (09:21)
[2021-09-17] MEDS: LISINOPRIL 20 MG TAB PO SCH (09:22)
[2021-09-17] MEDS: CARVEDILOL 12.5 MG TAB PO SCH ×2 (09:22→21:13)
[2021-09-17] MEDS: ASPirin 81 mg TAB PO SCH (09:22)
[2021-09-17] MEDS: NIFEdipine ER 30 MG TAB PO SCH (09:23)
[2021-09-17] MEDS: APIXABAN 5 MG TAB PO SCH ×2 (09:23→21:14)
[2021-09-17] MEDS: SPIRONOLACTONE 25 MG TAB PO SCH (09:23)
[2021-09-17] MEDS: CEFTRIAXONE SODIUM 2 GM in D5W 5% 50 ML IV SCH (12:11)
[2021-09-17 13:00] VITALS: BP 123/50
[2021-09-17] MEDS: FUROSEMIDE 40 MG/4 ML VIAL IV SCH (18:45)
[2021-09-17] MEDS: ACETAMINOPHEN 325 MG TAB PO PRN (21:14)
[2021-09-17] MEDS: ATORVASTATIN 20 MG TAB PO SCH (21:14)
[2021-09-17 22:27] VITALS: BP 126/75
[2021-09-18] VITALS (7 sets, daily range): BP systolic 113–134; BP diastolic 50–75
[2021-09-18] MEDS: ACCU-CHEK COMFORT CURVE STRIP VI SCH ×5 (00:21→16:33)
[2021-09-18] MEDS: InsuLIN REG 1unit/0.01ml Soln (100units/ml) SC SCH ×5 (00:22→16:35)
[2021-09-18] MEDS: TEMAZEPAM 15 MG CAP PO PRN (02:45)
[2021-09-18 05:47] LABS: Basophils # (auto) 0.1 10 ^3/uL (0-0.2); Basophils % (auto) 0.5 % (0.0-2.0); Eosinophils # (auto) 0.1 10 ^3/uL (0-0.8); Eosinophils % (auto) 0.9 % (0.0-7.0); Hemoglobin 11.6 g/dL (13.5-17.5); Lymphocytes # (auto) 1.4 10 ^3/uL (0.4-5.4); Lymphocytes % (auto) 9.6 % (10.0-50.0); Mean Corpuscular Hemoglobin 29.1 pg (28.0-32.0); Mean Corpuscular Hgb Conc. 34.2 g/dL (32.0-36.0); Mean Corpuscular Volume 85.2 fL (80.0-100.0); Monocytes # (auto) 1.4 10 ^3/uL (0-1.3); Monocytes % (auto) 9.2 % (0.0-12.0); Neutrophils # (auto) 11.9 10 ^3/uL (1.6-8.6); Neutrophils % (auto) 79.8 % (37.0-80.0); Red Blood Cells 3.99 10^6/uL (4.5-5.90); Red Cell Distribution Width 15.3 % (11.8-14.3); White Blood Cell 14.9 10^3/uL (4.4-10.8)
[2021-09-18 06:15] LABS: Potassium 3.2 mmol/L (3.5-5.1)
[2021-09-18 06:26] LABS: Albumin 1.8 g/dL (3.4-5.0); BUN/Creatinine Ratio 12.8; Bilirubin, Total 0.5 mg/dL (0.2-1.0); Calcium 8.7 mg/dL (8.5-10.1)
[2021-09-18] MEDS: FUROSEMIDE 40 MG/4 ML VIAL IV SCH (06:37)
[2021-09-18] MEDS ORDERED: POTASSIUM CHL 20 Meq TABLET PO ONE (08:00)
[2021-09-18] MEDS ORDERED: LEVO500T31 PO (09:45)
[2021-09-18] MEDS: LISINOPRIL 20 MG TAB PO SCH (10:33)
[2021-09-18] MEDS: SPIRONOLACTONE 25 MG TAB PO SCH (10:34)
[2021-09-18] MEDS: APIXABAN 5 MG TAB PO SCH (10:34)
[2021-09-18] MEDS: NIFEdipine ER 30 MG TAB PO SCH (10:34)
[2021-09-18] MEDS: ASPirin 81 mg TAB PO SCH (10:34)
[2021-09-18] MEDS: SERTRALINE HCL 50 MG TAB PO SCH (10:34)
[2021-09-18] MEDS: ENOXAPARIN SOD 40 MG/0.4 ML SYRINGE SC SCH (10:35)
[2021-09-18] MEDS: CARVEDILOL 12.5 MG TAB PO SCH (10:36)
[2021-09-18] MEDS: CEFTRIAXONE SODIUM 2 GM in D5W 5% 50 ML IV SCH (10:40)
[2021-09-19] MEDS ORDERED: POTASSIUM CHL 20 Meq TABLET PO SCH (10:00)
== END 2021-09-18 17:20 | disposition home health service (06) | DRG 871 ==
LOC: ER 15:15 → EDSEX 15:15 → EDUNIT# 15:15 → TELE 21:18 → TELE-CENTR 23:18
PROVIDERS: ADMIT Nurse Practitioner; ATTEND Family Medicine
PROC: 5A09357 Assistance with Respiratory Ventilation, Less than 24 Consecutive Hours, Continuous Positive Airway Pressure (ICD-10-PCS; principal; 2021-09-17)
DX: A41.59 Other Gram-negative sepsis (principal); I50.33 Acute on chronic diastolic (congestive) heart failure; I21.A1 Myocardial infarction type 2; R65.21 Severe sepsis with septic shock; N39.0 Urinary tract infection, site not specified; R35.89 Other polyuria; E11.65 Type 2 diabetes mellitus with hyperglycemia; E66.01 Morbid (severe) obesity due to excess calories; E78.5 Hyperlipidemia, unspecified; I25.10 Atherosclerotic heart disease of native coronary artery without angina pectoris; I48.0 Paroxysmal atrial fibrillation; J44.9 Chronic obstructive pulmonary disease, unspecified; E86.0 Dehydration; Z20.822 Contact with and (suspected) exposure to COVID-19; F32.A Depression, unspecified; E78.00 Pure hypercholesterolemia, unspecified; I11.0 Hypertensive heart disease with heart failure; Z80.3 Family history of malignant neoplasm of breast; Z79.01 Long term (current) use of anticoagulants; Z79.84 Long term (current) use of oral hypoglycemic drugs; Z81.8 Family history of other mental and behavioral disorders; Z91.19 Patient's noncompliance with other medical treatment and regimen; Z72.0 Tobacco use; Z71.6 Tobacco abuse counseling
CPT/HCPCS: 36415; 71045; 80048; 80053; 80061; 81001; 82962; 83036; 83605; 83735; 83880; 84443; 84484; 85007; 85025; 85027; 87040; 87077; 87086; 87088; 87186; 93005; 94660; 96365; 96375; 99291; G0378; J0696; J1815; J7060

== ENCOUNTER 2021-12-20 19:28 | Inpatient (IN) | payer MEDICAID, MEDICARE ==
[~2021-12-20] VITALS: Ht 165.1 cm; Wt 99.3 kg
[~2021-12-20 19:28] MED LIST changes: +LEVO500T31 PO
[2021-12-20] MEDS ORDERED: CARVEDILOL 12.5 MG TAB PO ONE (20:45)
[2021-12-20] MEDS ORDERED: LISINOPRIL 20 MG TAB PO ONE (20:45)
[2021-12-20] MEDS ORDERED: CARV12.544 PO (21:30)
[2021-12-20] MEDS ORDERED: LISI40TA11 PO (21:30)
[2021-12-20 22:32] LABS: Basophils # (auto) 0.1 10 ^3/uL (0-0.2); Eosinophils # (auto) 0.1 10 ^3/uL (0-0.8); Eosinophils % (auto) 0.6 % (0.0-7.0); Lymphocytes # (auto) 1.7 10 ^3/uL (0.4-5.4); Lymphocytes % (auto) 11.1 % (10.0-50.0); Mean Corpuscular Hemoglobin 25.9 pg (28.0-32.0); Monocytes # (auto) 0.9 10 ^3/uL (0-1.3)
[2021-12-20 22:44] LABS: Albumin 3.6 g/dL (3.4-5.0); BUN/Creatinine Ratio 4.7; Basophils % (auto) 0.6 % (0.0-2.0); Hematocrit 42.1 % (41.0-53.0); Hemoglobin 13.2 g/dL (13.5-17.5); Mean Corpuscular Hgb Conc. 31.3 g/dL (32.0-36.0); Mean Corpuscular Volume 82.8 fL (80.0-100.0); Monocytes % (auto) 5.9 % (0.0-12.0); Neutrophils # (auto) 12.8 10 ^3/uL (1.6-8.6); Neutrophils % (auto) 81.8 % (37.0-80.0); Potassium 3.9 mmol/L (3.5-5.1); Red Blood Cells 5.09 10^6/uL (4.5-5.90); White Blood Cell 15.7 10^3/uL (4.4-10.8)
[2021-12-20 22:46] LABS: Bilirubin, Total 0.5 mg/dL (0.2-1.0); Total Protein 7.4 g/dL (6.4-8.2)
[2021-12-21] MEDS ORDERED: ASPirin 325 MG TAB PO ONE (01:00)
[2021-12-21 01:35] LABS: Urine WBC None Seen /hpf (0 - 3)
[2021-12-21 01:48] LABS: Urine Bacteria NONE SEEN /hpf (None Seen); Urine Blood 3+ /uL (Negative)
[2021-12-21 01:50] LABS: Urine Specific Gravity 1.038 (1.001-1.035)
[2021-12-21] MEDS ORDERED: HYDROcodone-ACET 5/325MG TAB PO PRN (03:15)
[2021-12-21] MEDS ORDERED: ONDANSETRON HCL 4 MG/2 ML VIAL IV PRN (03:15)
[2021-12-21] MEDS ORDERED: DOCUSATE SOD 100 MG CAP PO PRN (03:15)
[2021-12-21] MEDS ORDERED: ACETAMINOPHEN 325 MG TAB PO PRN (03:15)
[2021-12-21] MEDS ORDERED: MORPHINE SULFATE INJ 2 MG/ml SYRG IV PRN ×2 (03:15→04:00)
[2021-12-21] MEDS ORDERED: DEXTROSE (50%) 50ML SYRG IV PRN (03:15)
[2021-12-21] MEDS ORDERED: IPRATROPIUM BROM 0.5 MG/2.5ML INH SOL NEB PRN (03:30)
[2021-12-21] MEDS ORDERED: ALBUTEROL SULF 2.5 MG/0.5ML(0.5%) NEB SOLN NEB PRN (03:30)
[2021-12-21 03:48] VITALS: BP 153/77
[2021-12-21] MEDS ORDERED: traZODone HCL 50 MG TAB PO ONE (04:00)
[2021-12-21] MEDS ORDERED: cefTRIAXone 1GM/50ML D5W 50 ML IV SCH (04:00)
[2021-12-21] MEDS ORDERED: NITROGLYCERIN 0.4 MG SL TAB SL PRN (04:00)
[2021-12-21] MEDS: SODIUM CHLOR 0.9% PF (SALINE LOCK) 10ML VIAL/SYR IV SCH ×3 (06:02→22:12)
[2021-12-21 06:34] LABS: Basophils # (auto) 0.1 10 ^3/uL (0-0.2); Hematocrit 40.8 % (41.0-53.0); Neutrophils # (auto) 12.6 10 ^3/uL (1.6-8.6)
[2021-12-21 06:36] LABS: Basophils % (auto) 0.6 % (0.0-2.0); Eosinophils # (auto) 0 10 ^3/uL (0-0.8); Eosinophils % (auto) 0.3 % (0.0-7.0); Lymphocytes # (auto) 1.5 10 ^3/uL (0.4-5.4); Lymphocytes % (auto) 9.9 % (10.0-50.0); Mean Corpuscular Hemoglobin 25.9 pg (28.0-32.0); Mean Corpuscular Hgb Conc. 31.8 g/dL (32.0-36.0); Mean Corpuscular Volume 81.5 fL (80.0-100.0); Monocytes % (auto) 6.5 % (0.0-12.0); Neutrophils % (auto) 82.7 % (37.0-80.0); Red Blood Cells 5.01 10^6/uL (4.5-5.90); Red Cell Distribution Width 15.6 % (11.8-14.3); White Blood Cell 15.2 10^3/uL (4.4-10.8)
[2021-12-21 06:49] LABS: Potassium 3.6 mmol/L (3.5-5.1)
[2021-12-21 06:55] LABS: Albumin 3.3 g/dL (3.4-5.0); BUN/Creatinine Ratio 6.9; Bilirubin, Total 0.5 mg/dL (0.2-1.0); Total Protein 7.4 g/dL (6.4-8.2)
[2021-12-21] MEDS: InsuLIN REG 1unit/0.01ml Soln (100units/ml) SC SCH ×3 (07:19→16:46)
[2021-12-21] MEDS: ACCU-CHEK COMFORT CURVE STRIP VI SCH ×4 (07:19→22:14)
[2021-12-21] MEDS ORDERED: ASPirin 81 mg TAB PO SCH (10:00)
[2021-12-21] MEDS: CARVEDILOL 12.5 MG TAB PO SCH ×2 (10:06→22:13)
[2021-12-21] MEDS: APIXABAN 5 MG TAB PO SCH ×2 (10:06→22:00)
[2021-12-21] MEDS ORDERED: LACTULOSE 20Gm/30ML SOLN PO ONE (12:00)
[2021-12-21 17:38] VITALS: BP 132/70
[2021-12-21] MEDS ORDERED: TAMSULOSIN HYDROCHLORIDE 0.4 MG CAP PO SCH (18:00)
[2021-12-21 22:00] VITALS: BP 163/79
[2021-12-21] MEDS ORDERED: ATORVASTATIN 20 MG TAB PO SCH (22:00)
[2021-12-21] MEDS ORDERED: InsuLIN REG 1unit/0.01ml Soln (100units/ml) SC SCH (22:00)
[2021-12-21] MEDS ORDERED: traZODone HCL 50 MG TAB PO SCH (22:00)
[2021-12-22] MEDS: hydrALAZINE HCL 20 MG/ML VL IV PRN ×2 (00:32→06:37)
[2021-12-22 05:00] VITALS: BP 162/81
[2021-12-22] MEDS: SODIUM CHLOR 0.9% PF (SALINE LOCK) 10ML VIAL/SYR IV SCH (06:20)
[2021-12-22] MEDS: ACCU-CHEK COMFORT CURVE STRIP VI SCH (06:21)
[2021-12-22] MEDS: InsuLIN REG 1unit/0.01ml Soln (100units/ml) SC SCH (06:24)
[2021-12-22 07:01] LABS: Potassium 3.4 mmol/L (3.5-5.1)
[2021-12-22 07:05] LABS: Basophils # (auto) 0.1 10 ^3/uL (0-0.2); Basophils % (auto) 0.4 % (0.0-2.0); Eosinophils # (auto) 0.1 10 ^3/uL (0-0.8); Eosinophils % (auto) 0.8 % (0.0-7.0); Hematocrit 36.7 % (41.0-53.0); Hemoglobin 12.2 g/dL (13.5-17.5); Lymphocytes # (auto) 1.5 10 ^3/uL (0.4-5.4); Lymphocytes % (auto) 9.4 % (10.0-50.0); Mean Corpuscular Hemoglobin 27.3 pg (28.0-32.0); Mean Corpuscular Hgb Conc. 33.2 g/dL (32.0-36.0); Mean Corpuscular Volume 82.3 fL (80.0-100.0); Monocytes # (auto) 1.3 10 ^3/uL (0-1.3); Monocytes % (auto) 8.1 % (0.0-12.0); Neutrophils # (auto) 13.1 10 ^3/uL (1.6-8.6); Neutrophils % (auto) 81.3 % (37.0-80.0); Red Blood Cells 4.47 10^6/uL (4.5-5.90); Red Cell Distribution Width 15.9 % (11.8-14.3); White Blood Cell 16.1 10^3/uL (4.4-10.8)
[2021-12-22 07:11] LABS: Albumin 3.1 g/dL (3.4-5.0); BUN/Creatinine Ratio 10.6; Bilirubin, Total 0.5 mg/dL (0.2-1.0); Calcium 8.9 mg/dL (8.5-10.1); Total Protein 7.1 g/dL (6.4-8.2)
[2021-12-22] MEDS ORDERED: LISINOPRIL 20 MG TAB PO SCH (10:00)
[2021-12-22] MEDS ORDERED: NIFEdipine ER 30 MG TAB PO SCH (10:00)
[2021-12-22] MEDS ORDERED: SPIRONOLACTONE 25 MG TAB PO SCH (10:00)
[2021-12-23] MEDS ORDERED: LACTULOSE 20Gm/30ML SOLN PO SCH (10:00)
== END 2021-12-22 07:55 | disposition left against medical advice (07) | DRG 871 ==
LOC: ER 19:28 → TELE 12-21 03:53 → TELE-WESTW 12-21 17:06
PROVIDERS: ADMIT Nurse Practitioner Family; ATTEND Internal Medicine Nephrology
DX: A41.9 Sepsis, unspecified organism (principal); I21.4 Non-ST elevation (NSTEMI) myocardial infarction; E87.1 Hypo-osmolality and hyponatremia; I16.1 Hypertensive emergency; N39.0 Urinary tract infection, site not specified; E11.9 Type 2 diabetes mellitus without complications; E66.9 Obesity, unspecified; E78.5 Hyperlipidemia, unspecified; I11.0 Hypertensive heart disease with heart failure; I25.10 Atherosclerotic heart disease of native coronary artery without angina pectoris; I48.91 Unspecified atrial fibrillation; I49.3 Ventricular premature depolarization; I50.9 Heart failure, unspecified; J44.9 Chronic obstructive pulmonary disease, unspecified; N40.0 Benign prostatic hyperplasia without lower urinary tract symptoms; F41.9 Anxiety disorder, unspecified; K21.9 Gastro-esophageal reflux disease without esophagitis; R31.9 Hematuria, unspecified; Z20.822 Contact with and (suspected) exposure to COVID-19; Z53.29 Procedure and treatment not carried out because of patient's decision for other reasons; Z81.8 Family history of other mental and behavioral disorders; I25.2 Old myocardial infarction; Z82.49 Family history of ischemic heart disease and other diseases of the circulatory system; Z83.3 Family history of diabetes mellitus; Z86.73 Personal history of transient ischemic attack (TIA), and cerebral infarction without residual deficits; Z91.19 Patient's noncompliance with other medical treatment and regimen; Z68.36 Body mass index [BMI] 36.0-36.9, adult
CPT/HCPCS: 36415; 71045; 80053; 81001; 82962; 83036; 83735; 83880; 84484; 85025; 87081; 87086; 96365; 96375; 99291; G0378; J0696; J1815

== ENCOUNTER 2024-05-22 17:56 | Inpatient (IN) | payer OTHER, MEDICARE ==
[~2024-05-22] VITALS: Ht 165.1 cm; Wt 97.5 kg
[~2024-05-22 17:56] MED LIST changes: -BUPR-160 PO; +BUPR-346 PO; -LISI40TA11 PO; +LISI40TA16 PO; +SERT-206 PO; -SERT50TA19 PO; +TRAZ-228 PO; -TRAZ100T3 PO
--- NOTE | 2024-05-22 18:22 | ECG ---
[facility] Test Date: 2024-05-22 Test Time: 17:58:53 Pat Name: ROSARIO CHANDLER Department: er Room: [facility] Gender: M Discovery Manager: gp : 1955 Requested By: MAGALIE MEZA Order Number: [id number] Reading MD: Josue Ochoa Measurements Intervals Goodell Rate: 107 P: 47 MT: 123 QRS: -37 QRSD: 109 T: 40 QT: 365 QTc: 487 Interpretive Statements Sinus tachycardia Ventricular premature complex Inferior infarct, old Baseline wander in lead(s) I,II,aVR,aVL,aVF,V5,V6 Electronically Signed On 05-23-2024 18:27:28 PST by Josue Ochoa Please click the below link to view image of tracing.
--- NOTE | 2024-05-22 18:35 | ED.PDOC ---
SOB-HPI HPI Comments 68 y.o male with PMH of COPD, Asthma, Hyperlipidemia, HTN, and MIx3 presents to the ED via EMS for a chief complaint of SOB associated with chest discomfort and a cough that started one day ago. EMS reports patient was saturating at 76% room air on scene, placed him on a breathing treatment and then on 4 liter of oxygen via NC which increased SPO2 to 95-96%. Patient mentions yesterday having a couple hematemesis episodes which has resolved today. Patient reports SOB and chest pain resolved after receiving breathing treatment today but still presents with a productive cough and phlegm. No other symptoms or pain reported. Patient admits to tobacco use. Chief Complaint: Shortness of Breath Time Seen by MD: 18:10 Primary Care Provider: JABARI Reviewed notes: Nurses Notes, Rug Hooker Hand Notes, Medications, Allergies Information Source: Patient, Emergency Med Personnel Mode of Arrival: EMS Severity: Moderate Timing: Days (1) Duration: Since onset Context: At Rest PE Risk Factors: None History of: COPD Prehospital treatment: 12 Lead EKG, Breathing Tx, Tactical Air Defense Controller, Oxygen Modifying Factors: Nothing Associated Signs and Symptoms: Cough, Chest Pain If cough with SOB: Productive, Clear Past Medical History PAST MEDICAL HISTORY: AFIB, Anxiety, CAD, CHF, COPD, DM, GERD, High Lipids, HTN, CT, TIA Surgical History: Denies all surgeries Family History Family History: Family hx of DM, Family hx of Cancer, Family hx of HTN Social History Smoker: Non-Smoker Alcohol: Rarely Drugs: Denies Drug Use Lives In: Home Constitutional: denies: chills, diaphoresis, fatigue, fever, malaise, sweats, weakness, others EENTM: denies: blurred vision, double vision, ear bleeding, ear discharge, ear drainage, ear pain, ear ringing, eye pain, eye redness, hearing loss, mouth pain, mouth swelling, nasal discharge, nose bleeding, nose congestion, nose pain, photophobia, tearing, throat pain, throat swelling, voice changes, others Respiratory: reports: cough, SOB at rest, shortness of breath, SOB with excertion; denies: hemoptysis, orthopnea, stridor, wheezing, others Cardiovascular: reports: chest pain; denies: dizzy spells, diaphoresis, Dyspnea on exertion, edema, irregular heart beat, left arm pain, lightheadedness, palpitations, PND, syncope, others Gastrointestinal: reports: hematemesis; denies: abdomen distended, abdominal pain, blood streaked bowels, constipated, diarrhea, dysphagia, difficulty swallowing, melena, nausea, poor appetite, poor fluid intake, rectal bleeding, rectal pain, vomiting, others Genitourinary: denies: burning, dysuria, flank pain, frequency, hematuria, incontinence, penile discharge, penile sore, pain, testicle pain, testicle swelling, urgency, others Neurological: denies: dizziness, fainting, headache, left sided numbness, left sided weakness, numbness, paresthesia, pre-existing deficit, right sided numbness, right sided weakness, seizure, speech problems, tingling, tremors, weakness, others Musculoskeletal: denies: back pain, gout, joint pain, joint swelling, muscle pain, muscle stiffness, neck pain, others Integumetry: denies: bruises, change in color, change in hair/nails, dryness, laceration, lesions, lumps, rash, wounds, others Allergic/Immunocompromised: denies: Difficulty Healing, Frequent Infections, Hives, Itching, others Hematologic/Lymphatic: denies: anemia, blood clots, easy bleeding, easy bruising, swollen glands, others Endocrine: denies: excessive hunger, excessive sweating, excessive thirst, excessive urination, flushing, intolerance to cold, intolerance to heat, unexplained weight gain, unexplained weight loss, others Psychiatric: denies: anxiety, bipolar disorder, depression, hopeless, panic disorder, schizophrenia, sleepless, suicidal, others All Other Systems: Reviewed and Negative Physical Exam General Appearance: Moderate Distress HEENT: Normal ENT Inspection, Pharynx Normal, TMs Normal Neck: Full Range of Motion, Non-Tender, Normal, Normal Inspection Respiratory: Chest Non-Tender, Decreased Breath Sounds, No Accessory Muscle Use , Normal Breath Sounds, Respiratory Distress, Wheezing Cardiovascular: No Edema, No JVD, No Murmur, No Gallop, Normal Peripheral Pulses, Regular Rate/Rhythm Breast Exam: Deferred Gastrointestinal: No Organomegaly, Non Tender, No Pulsatile Mass, Normal Bowel Sounds, Soft Genitalia: Deferred Pelvic: Deferred Rectal: Deferred Extremities: No calf tenderness, Normal capillary refill, Normal inspection, Normal range of motion, Non-tender, No pedal edema Musculoskeletal : Apperance: Normal Neurologic: Alert, warehouse packaging supervisor II-XII nml as Tested, Motor Weakness, Normal Affect, Normal Mood, No Sensory Deficits Cerebellar Function: Normal Reflexes: Normal Skin: Dry, Normal Color, Warm Lymphatic: No Adenopathy Was a procedure done? Was a procedure done?: No Differential Dx Differential Diagnosis: Asthma, Bronchitis, CHF, COPD, Pneumonia, Pneumothorax, Pulmonary Embolism, Respiratory Distress, URI X-Ray, Labs, Meds, VS Vital Signs Date Time Temp Pulse Resp B/P (MAP) Pulse Ox O2 Delivery O2 Flow Rate FiO2 05/22/24 18:41 22 96 Nasal Cannula* 4 36 05/22/24 18:00 98.5 105 19 191/63 (105) 95 05/22/24 18:00 24 95 Nasal Cannula* 4 36 05/22/24 17:58 107 Lab Test 05/22/24 18:55 05/22/24 18:45 Range/Units White Blood Count 12.0 H 4.4-10.8 10^3/uL Red Blood Count 5.66 4.5-5.90 10^6/uL Hemoglobin 17.0 13.5-17.5 g/dL Hematocrit 50.3 41.0-53.0 % Mean Corpuscular Volume 88.8 80.0-100.0 fL Mean Corpuscular Hemoglobin 30.1 28.0-32.0 pg Mean Corpuscular Hemoglobin Concent 33.9 32.0-36.0 g/dL Red Cell Distribution Width 14.8 H 11.8-14.3 % Platelet Count 394 140-450 10^3/uL Mean Platelet Volume 8.6 6.9-10.8 fL Neutrophils (%) (Auto) 73.4 37.0-80.0 % Lymphocytes (%) (Auto) 16.2 10.0-50.0 % Monocytes (%) (Auto) 9.7 0.0-12.0 % Eosinophils (%) (Auto) 0.0 0.0-7.0 % Basophils (%) (Auto) 0.7 0.0-2.0 % Neutrophils # (Auto) 8.8 H 1.6-8.6 10 ^3/uL Lymphocytes # (Auto) 2.0 0.4-5.4 10 ^3/uL Monocytes # (Auto) 1.2 0-1.3 10 ^3/uL Eosinophils # (Auto) 0 0-0.8 10 ^3/uL Basophils # (Auto) 0.1 0-0.2 10 ^3/uL Nucleated Red Blood Cells 0.1 % Sodium Level 136 136-145 mmol/L Potassium Level 3.3 L 3.5-5.1 mmol/L Chloride Level 97 L 98-107 mmol/L Carbon Dioxide Level 32 H 20-31 mmol/L Anion Gap 7 5-15 Blood Urea Nitrogen 6 L 9-23 mg/dL Creatinine 0.85 0.700-1.30 mg/dL Glomerular Filtration Rate Calc 96 >90 mL/min BUN/Creatinine Ratio 7.1 L 10.0-20.0 Serum Glucose 217 H 74-106 mg/dL Calcium Level 9.8 8.7-10.4 mg/dL B-Type Natriuretic Peptide 57.97 0-100 pg/mL Lactic Acid Level 2.0 0.4-2.0 mmol/L Current Medications Medications (Trade) Dose Ordered Sig/Cash Route Start Time Stop Time Status Last Admin Ipratropium [place] (Atrovent Medneb) 1 mg ONCE ONCE [facility] 05/22/24 18:15 05/22/24 18:17 DC 05/22/24 18:41 Albuterol (Ventolin Medneb) 20 mg ONCE ONCE N 05/22/24 18:15 05/22/24 18:17 DC 05/22/24 18:41 IV Hep-Lock was established The patient was given a continuous breathing treatment of albuterol and Atrovent. The CBC shows an elevated white blood cell count of 12 The chemistry panel shows hyperglycemia at 217 but otherwise within normal limit s The lactic acid level is 2.0 At this time, the patient's chest x-ray shows: IMPRESSION: 1. Development of bibasilar areas of infiltrate or atelectasis which has developed since previous study of 12/20/2021. The patient did receive Solu-Medrol 125 mg IV push At this time we are admitting the patient with a diagnosis of acute respiratory failure with hypoxemia We discussed the findings with the patient and they are in agreement with the management Images Reviewed?: Images reviewed and evaluated by me Time of 1ST Reevaluation: 18:35 Reevaluation 1ST: Unchanged Patient Education/Counseling: Diagnosis, Treatment, Prognosis Family Education/Counseling: No Family Present Departure 1 Departure Time of Disposition: :13 Impression: Primary Impression: COPD exacerbation Additional Impressions: Acute respiratory failure Qualified Codes: J96.01 - Acute respiratory failure with hypoxia Hypokalemia Disposition: ADMITTED INPATIENT Admit to: Tele Condition: Fair Critical Care Note Critical Care Time?: Yes (45 min-critical care time only) Stability Stability form required: Yes Unstable for transfer: Telemetry monitoring (Telemetry monitoring required), ED Physician Assesment (Clinical assesment) Heart Score Heart Score: Heart Score Response (Comments) Value History Moderate Suspicious 1 EKG Repolarization Disturb 1 Age >65 2 Risk Factors >3 or Hx ASHD 2 Troponin Normal limit 0 Total 6 I personally scribed for MAGALIE MEZA MD ([email or web address]) on 05/22/24 at 18:35. Electronically submitted by Melania Shearer ([facility]). MAGALIE MEZA MD May 22, 2024 18:35
[2024-05-22] MEDS: IPRATROPIUM BROM 0.5 MG/2.5ML INH SOL HHN ONE (18:41)
[2024-05-22] MEDS: ALBUTEROL SULF 2.5 MG/0.5ML(0.5%) NEB SOLN HHN ONE (18:41)
[2024-05-22 19:20] LABS: Basophils # (auto) 0.1 10 ^3/uL (0-0.2); Basophils % (auto) 0.7 % (0.0-2.0); Eosinophils # (auto) 0 10 ^3/uL (0-0.8); Hematocrit 50.3 % (41.0-53.0); Lymphocytes % (auto) 16.2 % (10.0-50.0); Mean Corpuscular Hemoglobin 30.1 pg (28.0-32.0); Mean Corpuscular Hgb Conc. 33.9 g/dL (32.0-36.0); Mean Corpuscular Volume 88.8 fL (80.0-100.0); Monocytes # (auto) 1.2 10 ^3/uL (0-1.3); Monocytes % (auto) 9.7 % (0.0-12.0); Neutrophils # (auto) 8.8 10 ^3/uL (1.6-8.6); Neutrophils % (auto) 73.4 % (37.0-80.0); Nucleated Red Blood Cells % 0.1 %; Platelet Count (auto) 394 10^3/uL (140-450); Red Blood Cells 5.66 10^6/uL (4.5-5.90); Red Cell Distribution Width 14.8 % (11.8-14.3)
[2024-05-22 19:34] LABS: Anion Gap 7 (5-15); Calcium 9.8 mg/dL (8.7-10.4)
[2024-05-22 19:39] LABS: BUN/Creatinine Ratio 7.1 (10.0-20.0)
[2024-05-22 19:42] LABS: Blood Urea Nitrogen 6 mg/dL (9-23); Carbon Dioxide 32 mmol/L (20-31); Chloride 97 mmol/L (98-107); Glucose 217 mg/dL (74-106); Potassium 3.3 mmol/L (3.5-5.1); Sodium 136 mmol/L (136-145)
--- NOTE | 2024-05-22 20:45 | DVH ---
CHEST RADIOGRAPH Indication: sob Technique: Single frontal view of the chest was obtained Comparison: CHEST PORTABLE on DOS: 12/20/21, CHEST XRAY 1 VIEW on DOS: 09/15/21, CXR1 on DOS: 09/15/21 FINDINGS: Lines and Tubes: None Lungs: Bibasilar areas infiltrate or subsegmental atelectasis was not present on previous study of [facility] 2021 Pleura: No effusion. No pneumothorax. Cardiomediastinal contours: Unremarkable Bones: No acute osseous abnormality. IMPRESSION: 1. Development of bibasilar areas of infiltrate or atelectasis which has developed since previous elo dy of 12/20/2021.
--- NOTE | 2024-05-22 22:43 | DVHHPRES ---
History of Present Illness Resident Creating Document: GILA THAKUR RESIDENT History of Present Illness This is a 68-year-old male with past medical history hypertension, hyperlipidemia, COPD, CHF, CAD presented to the ED with a chief complaint shortness of breath with productive sputum for 10 days prior to this admission. Patient states that shortness of breath started almost 10 days ago associated with cough and whitish sputum, fatigue , not feeling well getting worse that prompted this visit. Per EMS reports that patient was saturating 76% on room air and placed him on a breathing treatment and on 4 L oxygen through nasal cannula increases the saturation to 95 -96%. The patient denies headache, chest pain, dizziness, diaphoresis, abdominal pain, nausea, vomiting, dysuria, hematuria, sick contact or any change in bowel and bladder habit. Past Medical History Hypertension, hyperlipidemia, COPD, CAD, CHF Past Surgical History None Family History None Past Social History Lives with family Smoker, occasional drinker and never tried any drugs Review of Systems Constitutional: Yes: Weakness, Malaise; No: Fever, Chills, Sweats, Other Eyes: No: Pain, Vision change, Conjunctivae inflammation, Eyelid inflammation, Other, Redness ENT: No: Ear pain, Ear discharge, Nose pain, Nose discharge, Nose congestion, Mouth pain, Mouth swelling, Throat pain, Throat swelling, Other Respiratory: Cough, Shortness of breath, Wheezing, Sputum; No: Dry, SOB with excertion, Hemoptysis, Pleuritic Pain, Wheezing, Other Cardiovascular: No: Chest Pain, Palpitations, Orthopnea, Paroxysmal Noc. Dyspnea, Edema, Lt Headedness, Other Gastrointestinal: No: Nausea, Vomiting, Abdominal Pain, Diarrhea, Constipation, Melena, Hematochezia, Other Genitourinary: No Dysuria, No Frequency, No Incontinence, No Hematuria, No Retention, No Other Musculoskeletal: No: other, neck pain, shoulder pain, arm pain, back pain, hand pain, leg pain, foot pain Skin: No: Rash, Lesions, Jaundice, Bruising, Other Neurological: No: Weakness, Numbness, Incoordination, Change in speech, Confusion, Seizures, Other Allergies: Coded Allergies: NO KNOWN ALLERGIES (Unverified , 04/20/20) Exam Vital Signs Vital Signs Date Time Temp Pulse Resp B/P (MAP) Pulse Ox O2 Delivery O2 Flow Rate FiO2 05/22/24 18:41 22 96 Nasal Cannula* 4 36 05/22/24 18:00 98.5 105 191/63 (105) Exam Physical examination: General Appearance: Alert, Oriented X3, Cooperative, mild distress, 4L o2 through nasal canula HEENT: Atraumatic, PERRLA, EOMI, Mucous membrane moist/pink Respiratory: Bilateral crackles and wheezing. Cardiovascular: Regular rate, Normal S1, Normal S2, No murmurs, no chest wall tenderness Abdominal: Normal bowel sounds, Soft, No tenderness, No hepatospenomegaly, No masses Extremities: No clubbing, No cyanosis, No edema, Normal pulses, No tenderness/swelling Skin: No rashes, No breakdown, No significant lesion Neuro: Normal speech, Strength at 5/5 X4 ext, Normal tone, Sensation intact, grossly intact cranial nerves Psych/Mental Status: Mental status NL, Mood NL Labs/Xrays Labs Test 05/22/24 18:55 05/22/24 18:45 Range/Units White Blood Count 12.0 H 4.4-10.8 10^3/uL Red Blood Count 5.66 4.5-5.90 10^6/uL Hemoglobin 17.0 13.5-17.5 g/dL Hematocrit 50.3 41.0-53.0 % Mean Corpuscular Volume 88.8 80.0-100.0 fL Mean Corpuscular Hemoglobin 30.1 28.0-32.0 pg Mean Corpuscular Hemoglobin Concent 33.9 32.0-36.0 g/dL Red Cell Distribution Width 14.8 H 11.8-14.3 % Platelet Count 394 140-450 10^3/uL Mean Platelet Volume 8.6 6.9-10.8 fL Neutrophils (%) (Auto) 73.4 37.0-80.0 % Lymphocytes (%) (Auto) 16.2 10.0-50.0 % Monocytes (%) (Auto) 9.7 0.0-12.0 % Eosinophils (%) (Auto) 0.0 0.0-7.0 % Basophils (%) (Auto) 0.7 0.0-2.0 % Neutrophils # (Auto) 8.8 H 1.6-8.6 10 ^3/uL Lymphocytes # (Auto) 2.0 0.4-5.4 10 ^3/uL Monocytes # (Auto) 1.2 0-1.3 10 ^3/uL Eosinophils # (Auto) 0 0-0.8 10 ^3/uL Basophils # (Auto) 0.1 0-0.2 10 ^3/uL Nucleated Red Blood Cells 0.1 % Sodium Level 136 136-145 mmol/L Potassium Level 3.3 L 3.5-5.1 mmol/L Chloride Level 97 L 98-107 mmol/L Carbon Dioxide Level 32 H 20-31 mmol/L Anion Gap 7 5-15 Blood Urea Nitrogen 6 L 9-23 mg/dL Creatinine 0.85 0.700-1.30 mg/dL Glomerular Filtration Rate Calc 96 >90 mL/min BUN/Creatinine Ratio 7.1 L 10.0-20.0 Serum Glucose 217 H 74-106 mg/dL Calcium Level 9.8 8.7-10.4 mg/dL B-Type Natriuretic Peptide 57.97 0-100 pg/mL Lactic Acid Level 2.0 0.4-2.0 mmol/L Assessment/Plan Assessment/Plan Assessment and plan: # Acute respiratory failure due to acute exacerbation of COPD # Acute respiratory failure likely secondary to superimposed community-acquired Gram-positive/Gram-negative pneumonia - Patient is on 4 L oxygen with saturation 95% - Chest x-ray revealed bibasilar infiltrate/ opacity and possible atelectasis - Ordered sputum C/S - IV methylprednisolone 40 mg b.i.d. - DuoNeb with albuterol and ipratropium q.4 hours - IV ceftriaxone 1 g daily and IV azithromycin 500 mg daily. # Rule out CHF - BNP is normal - Echo n 2021 revealed ejection fraction 60% with normal RV function - Ordered echo # Type 2 diabetes mellitus, hemoglobin A1c 7.7% - Mild sliding scale of insulin # Hypokalemia - Replenished # PUD prophylaxis - Protonix 40 mg p.o. daily # DVT prophylaxis - Lovenox 40 mg sc daily Goal of care discussed with the patient more than 23 minutes code Plan discussed with Dr. Van Plan discussed with: Patient, Other My Orders Orders - GILA THAKUR RESIDENT Procedure Category Date Status Time Admit ADMIT 05/22/24 Verified 22:41 Date of Service: May 22, 2024 Billing Provider: ANGELINE VAN MD Common Visit Codes: [id number] INP/OBS CARE (HIGH) Secondary Visit Codes: [id number] CARE PLAN 30 MINUTES GILA THAKUR May 22, 2024 22:43 ANGELINE VAN MD May 23, 2024 18:53
[2024-05-22] MEDS: FUROSEMIDE 40 MG/4 ML VIAL IV ONE (23:32)
[2024-05-22] MEDS: methylPREDNISolone SOD SUCC 125 MG/2 ML VL IV ONE (23:32)
[2024-05-22] MEDS: POTASSIUM CHL 20 Meq TABLET PO ONE (23:32)
[2024-05-22] MEDS: cefTRIAXone 1GM/50ML D5W 50 ML IV ONE (23:33)
[2024-05-22] MEDS: AZITHROMYCIN 500MG/ 250ML 250 ML IV ONE (23:34)
[2024-05-23] VITALS (19 sets, daily range): BP systolic 129–155; BP diastolic 60–77; PULSE 82–112; RESP 16–20; TEMP 97.7–98.1; O2SAT 90–100
[2024-05-23] MEDS: ALBUTEROL SULF 2.5 MG/0.5ML(0.5%) NEB SOLN NEB SCH (02:15)
[2024-05-23] MEDS: IPRATROPIUM BROM 0.5 MG/2.5ML INH SOL NEB SCH (02:15)
[2024-05-23] MEDS ORDERED: DEXTROSE (50%) 50ML SYRG IV PRN (04:30)
[2024-05-23] MEDS: ACCU-CHEK COMFORT CURVE STRIP VI SCH (06:30)
[2024-05-23] MEDS: InsuLIN REG 1unit/0.01ml Soln (100units/ml) SC SCH (06:33)
[2024-05-23] MEDS: PANTOPRAZOLE 40 MG TAB PO SCH (06:34)
[2024-05-23] MEDS: ENOXAPARIN SOD 40 MG/0.4 ML SYRINGE SC SCH (10:45)
[2024-05-23] MEDS: methylPREDNISolone SOD SUCC 40 MG/ML VL IV SCH (10:45)
[2024-05-23 11:41] LABS: Urine Bacteria None Seen /hpf (None Seen)
[2024-05-23 12:09] LABS: COVID19 ANTIGEN SOFIA FIA NEGATIVE (NEGATIVE); Rapid Influenza A Negative (Negative); Rapid Influenza B Negative (Negative)
[2024-05-23 12:25] LABS: Benzodiazephine Screen, Urine Neg (NEGATIVE)
[2024-05-23 12:27] LABS: Amphetamine Screen, Urine Neg (NEGATIVE); Barbiturate Scree,Urine Neg (NEGATIVE); Cocaine Screen, Urine Neg (NEGATIVE); Opiate Scree,Urine Neg (NEGATIVE); Phencyclidine Screen, Urine Neg (NEGATIVE)
[2024-05-23 12:28] LABS: Cannabinoid Screen, Urine Neg (NEGATIVE)
[2024-05-23 12:31] LABS: Urine Mucus FEW (None Seen); Urine Squamous Epithelial Cell None Seen /hpf (<5); Urine WBC 45 /hpf (0 - 3)
[2024-05-23 12:50] LABS: Urine Blood 1+ /uL (Negative); Urine Clarity Turbid (Clear); Urine Color Yellow (Yellow); Urine Protein, UAD 1+ (Negative); Urine Specific Gravity 1.021 (1.001-1.035); Urine Urobilinogen 2 mg/dL (Negative); Urine pH 6.5 (5.0-9.0)
--- NOTE | 2024-05-23 13:10 | DVHPNRES ---
Progress Note Date Seen: May 23, 2024 Resident Creating Document: BILLIE LAM RESIDENT Medical Necessity Reason Pt with a Central, PICC or Fol: No Subjective Review of Systems Patient is a 68-year-old male with past medical history of CHF, COPD, CAD, type 2 diabetes, hypertension, dyslipidemia, who came in due to shortness of breath and cough. According to the patient for the past 1 week, he is experiencing dyspnea along with shortness of breaths and cough. Patient was noted to have SpO2 of 76 as reported by the EMS on scene. He denies having similar symptoms in the past, denies any sick contacts or recent travel. Patient notes cough is productive of a whitish sputum. Patient was put on 4 L of oxygen. Past surgical history: Denies Home medications: Albuterol, alogliptin, apixaban, aspirin, atorvastatin, bupropion, carvedilol, fluticasone inhaler, budesonide formoterol, lisinopril, metformin, nifedipine, sertraline, spironolactone, terazosin, trazodone Past Hospitalization: 2007 for pleural effusion Social & Personal history: Patient lives with his niece. Quit smoking 9 months ago, prior to that was smoking 1 pack per day for 20 years. Quit alcohol 30 years ago, denies using any drugs. Allergies: Denies Patient seen and examined at bedside. Patient is alert and oriented to time, place person and responding to all questions. General: Fatigue Eyes: No Pain, No Vision change, No Conjunctivae inflammation, No Eyelid inflammation, No Other, No Redness ENT: No Ear pain, No Ear discharge, No Nose pain, No Nose discharge, No Nose congestion, No Mouth pain, No Mouth swelling, No Throat pain, No Throat swelling, No Other Cardiovascular: No Chest Pain, No Palpitations, No Orthopnea, dyspnea, No Edema, No Lt Headedness, No Other Respiratory: No Cough, No Dry, shortness of breaths, No Wheezing, No Hemoptysis, No Pleuritic Pain, No Sputum, No Other Gastrointestinal: No Nausea, No Vomiting, No Abdominal Pain, No Diarrhea, No Constipation, No Melena, No Hematochezia, No Other Genitourinary: No Dysuria, No Frequency, No Incontinence, No Hematuria, No Retention, No Other Musculoskeletal: No other, No neck pain, No shoulder pain, No arm pain, No back pain, No hand pain, No leg pain, No foot pain Skin: No Rash, No Lesions, No Jaundice, No Bruising, No Other Objective vital signs Vital Sign Date Time Temp Pulse Resp B/P (MAP) Pulse Ox O2 Delivery O2 Flow Rate FiO2 05/23/24 12:00 98 18 146/71 (96) 93 05/23/24 08:15 Nasal Cannula* 4 36 05/23/24 01:49 97.7 97.7 Total Intake and Output 05/22/24 05/22/24 05/23/24 15:00 23:00 07:00 Intake Total 300 ml Balance 300 ml medications Current Medications Medications Dose Ordered Sig/Cash Route Start Time Stop Time Status Last Admin Dose Admin Ipratropium [place] 0.5 mg Q4HR NEB 05/23/24 02:00 05/23/24 10:27 0.5 MG Albuterol 2.5 mg Q4HR NEB 05/23/24 02:00 05/23/24 10:26 2.5 MG Ceftriaxone Sodium 50 ml @ 100 mls/hr DAILY@2100 IV 05/23/24 21:00 Azithromycin 250 ml @ 125 mls/hr DAILY@2200 IV 05/23/24 22:00 Methylprednisolone Sodium Succinate 40 mg BID IV 05/23/24 10:00 05/23/24 10:45 40 MG Diagnostic Test (Pha) 1 strip ACHS 05/23/24 07:00 05/23/24 11:50 1 STRIP Insulin Human Regular ACHS SC 05/23/24 07:00 05/23/24 11:57 4 UNITS Dextrose 50 ml UD PRN IV 05/23/24 04:30 Pantoprazole Sodium 40 mg DAILY@0600 PO 05/23/24 06:00 05/23/24 06:34 40 MG Enoxaparin Sodium 40 mg DAILY SC 05/23/24 10:00 05/23/24 10:45 40 MG Examination General Appearance: Cooperative. Well developed. Well nourished. NAD Head Exam: Normal inspection Neck Exam: Normal inspection. Non-tender. Normal alignment Pulmonary/Respiratory: Chest non-tender. Clear bilateral breath sounds, no crackles, bilateral wheezing heard in all lung chau Cardiovascular/Chest: Regular rate and rhythm. No murmurs. No JVD. Peripheral Pulses: 2+ Radial (R). 2+ Radial (L). 2+ Pedal (R). 2+ Pedal (L) Abdominal Exam: Normal bowel sounds. Soft. normal abdomen, no visible veins, Nontender. No hepatospenomegaly. No masses Ankle Exam: Negative ankle edema Lower extremities: Trace lower extremity edema Neuro/Mental Status: A&O x4. Coherent. Thoughts/Psych: Normal thought pattern. Appropriate mood and affect. Good judgement and insight Skin Exam: Normal inspection. Normal color. Warm. Dry laboratory and microbiology Laboratory Tests 05/23/24 06:20 05/22/24 18:55 Test 05/22/24 18:55 Range/Units Serum Glucose 217 H 74-106 mg/dL Labs and/or images reviewed: Labs reviewed by me, Image(s) reviewed by me Problem List/Assessment/Plan Problem List/Assessment/Plan Acute hypoxic/hypercarbic respiratory failure Community-acquired pneumonia, Gram-positive versus Gram-negative Acute exacerbation of COPD - patient 4 L O2 via NC. COVID and influenza negative - CXR: Development of bibasilar areas of infiltrate or atelectasis which has developed since previous study of 12/20/2021 - IV azithromycin, IV ceftriaxone - ipratropium and albuterol med nebs - IV methylprednisolone 40 mg b.i.d., now transitioning to p.o. prednisone 40 mg Possible acute on chronic diastolic heart failure - IV Lasix 40 mg once - BNP 57 - repeat echo ordered - we will continue to monitor Type 2 diabetes, Hb A1c 7.7 Hypertension, blood pressure on the softer side Coronary artery disease - mild sliding scale insulin Hyperkalemia, now improved - repleted with p.o. potassium 40 mEq PUD prophylaxis: protonix 40mg DVT prophylaxis: Levonox 40mg Goals of care: Full code, discussed for >16 minutes on 05/23/2024 Plan discussed with patient Plan discussed with Dr. Forbes Plan discussed with: Patient, Other (RN) Date of Service: May 23, 2024 Billing Provider: LIZZETH FORBES MD Common Visit Codes: [id number] INP/OBS CARE(HIGH) BILLIE LAM May 23, 2024 13:10 LIZZETH FORBES MD May 23, 2024 20:24
--- NOTE | 2024-05-23 16:58 | DVHSR ---
APPROVED REPORT EXAM: Two-dimensional and M-mode echocardiogram with Doppler and color Doppler. Blood Pressure: 126/67 mmHg INDICATION Shortness of Breath RISK FACTORS Height: 65, Weight: 260 DIMENSIONS LVDd4.0 (3.8-5.7cm)LA (2D)3.8 (1.9-4.0cm)Aortic Root3.5 (2.0-3.7cm) LVDs2.6 (2.5-4.0cm)LA (MM) (1.9-4.0cm)Aortic Cusp Exc1.9 (1.5-2.0cm) EF (%) 65.0 (55-70%)Rt. Atrium (1.9-4.0cm)Asc. Aorta cm IVSd1.2 (0.7-1.1cm)RV (D) (1.8-2.4cm) PWd1.4 (0.7-1.1cm) Mitral Valve MitralMitral Stenosis E wave0.58m/sMV Mean GR.mmHg A wave0.97m/sMV Peak GR.mmHg E/A ratio0.62D MVAcm2 DECEL [id number] 1/2 [id number] IVRTmsDop MVA3.94cm2 Aortic Valve Aortic ValveAortic Stenosis V11.30m/[place] Mean GR.5mmHg V21.62m/[place] Peak GR.10mmHg LVOT Diameter1.9 (1.8-2.4cm)Doppler AVA2.27cm2 Pulmonic Valve V20.94m/s Other Information Technically limited study due to body habitus. Conclusion lvef 60 % by visual estimate noraml RV function, RV enlarged left atrium enlarged mild no severe valve abnormaliteis noted
[2024-05-23] MEDS: cefTRIAXone 1GM/50ML D5W 50 ML IV SCH (21:01)
[2024-05-23] MEDS: AZITHROMYCIN 500MG/ 250ML 250 ML IV SCH (22:00)
[2024-05-24] VITALS (20 sets, daily range): BP systolic 126–159; BP diastolic 59–95; PULSE 73–111; RESP 16–20; TEMP 97.3–98.1; O2SAT 91–100
[2024-05-24 06:57] LABS: Basophils # (auto) 0 10 ^3/uL (0-0.2); Basophils % (auto) 0.3 % (0.0-2.0); Eosinophils # (auto) 0 10 ^3/uL (0-0.8); Eosinophils % (auto) 0.1 % (0.0-7.0); Hematocrit 45.2 % (41.0-53.0); Hemoglobin 15.2 g/dL (13.5-17.5); Lymphocytes # (auto) 2.2 10 ^3/uL (0.4-5.4); Lymphocytes % (auto) 16.8 % (10.0-50.0); Mean Corpuscular Hgb Conc. 33.7 g/dL (32.0-36.0); Mean Corpuscular Volume 88.9 fL (80.0-100.0); Monocytes # (auto) 1.3 10 ^3/uL (0-1.3); Monocytes % (auto) 9.8 % (0.0-12.0); Neutrophils # (auto) 9.7 10 ^3/uL (1.6-8.6); Nucleated Red Blood Cells % 0.1 %; Platelet Count (auto) 399 10^3/uL (140-450); Red Blood Cells 5.08 10^6/uL (4.5-5.90); Red Cell Distribution Width 14.3 % (11.8-14.3); White Blood Cell 13.3 10^3/uL (4.4-10.8)
[2024-05-24 07:16] LABS: Calcium 9.5 mg/dL (8.7-10.4); Chloride 99 mmol/L (98-107); Sodium 138 mmol/L (136-145)
[2024-05-24 07:17] LABS: Anion Gap 7 (5-15)
[2024-05-24 07:18] LABS: Carbon Dioxide 32 mmol/L (20-31); Potassium 3.2 mmol/L (3.5-5.1)
[2024-05-24 07:22] LABS: BUN/Creatinine Ratio 12.8 (10.0-20.0); Blood Urea Nitrogen 11 mg/dL (9-23)
[2024-05-24 07:31] LABS: Glucose 167 mg/dL (74-106)
[2024-05-24] MEDS: POTASSIUM EFFERVESENT TAB 25 MEQ PO ONE (09:10)
[2024-05-24] MEDS: predniSONE 20 MG TAB PO SCH (09:11)
--- NOTE | 2024-05-24 18:44 | DVHPNRES ---
Progress Note Date Seen: May 24, 2024 Resident Creating Document: BILLIE LAM RESIDENT Medical Necessity Reason Pt with a Central, PICC or Fol: No Subjective Review of Systems Patient is a 68-year-old male with past medical history of CHF, COPD, CAD, type 2 diabetes, hypertension, dyslipidemia, who came in due to shortness of breath and cough. According to the patient for the past 1 week, he is experiencing dyspnea along with shortness of breaths and cough. Patient was noted to have SpO2 of 76 as reported by the EMS on scene. He denies having similar symptoms in the past, denies any sick contacts or recent travel. Patient notes cough is productive of a whitish sputum. Patient was put on 4 L of oxygen. Past surgical history: Denies Home medications: Albuterol, alogliptin, apixaban, aspirin, atorvastatin, bupropion, carvedilol, fluticasone inhaler, budesonide formoterol, lisinopril, metformin, nifedipine, sertraline, spironolactone, terazosin, trazodone Past Hospitalization: 2007 for pleural effusion Social & Personal history: Patient lives with his niece. Quit smoking 9 months ago, prior to that was smoking 1 pack per day for 20 years. Quit alcohol 30 years ago, denies using any drugs. Allergies: Denies Patient seen and examined at bedside. Patient is alert and oriented to time, place person and responding to all questions. Objective vital signs Vital Sign Date Time Temp Pulse Resp B/P (MAP) Pulse Ox O2 Delivery O2 Flow Rate FiO2 05/24/24 17:46 95 05/24/24 16:37 97.9 95 18 159/95 (116) 97.9 05/24/24 13:28 Room Air 0.0 05/24/24 13:28 21 Total Intake and Output 05/23/24 05/23/24 05/24/24 15:00 23:00 07:00 Intake Total 50 ml 950 ml Balance 50 ml 950 ml medications Current Medications Medications Dose Ordered Sig/Cash Route Start Time Stop Time Status Last Admin Dose Admin Ipratropium [place] 0.5 mg Q4HR NEB 05/23/24 02:00 05/24/24 13:28 0.5 MG Albuterol 2.5 mg Q4HR NEB 05/23/24 02:00 05/24/24 13:28 2.5 MG Ceftriaxone Sodium 50 ml @ 100 mls/hr DAILY@2100 IV 05/23/24 21:00 05/23/24 21:01 100 MLS/HR Azithromycin 250 ml @ 125 mls/hr DAILY@2200 IV 05/23/24 22:00 05/23/24 22:00 125 MLS/HR Diagnostic Test (Pha) 1 strip ACHS 05/23/24 07:00 05/24/24 17:00 1 STRIP Insulin Human Regular ACHS SC 05/23/24 07:00 05/24/24 17:00 4 UNITS Dextrose 50 ml UD PRN IV 05/23/24 04:30 Pantoprazole Sodium 40 mg DAILY@0600 PO 05/23/24 06:00 05/24/24 06:12 40 MG Enoxaparin Sodium 40 mg DAILY SC 05/23/24 10:00 05/24/24 09:11 40 MG Prednisone 40 mg DAILY PO 05/24/24 10:00 05/27/24 10:00 05/24/24 09:11 40 MG Examination General Appearance: Cooperative. Well developed. Well nourished. NAD Head Exam: Normal inspection Neck Exam: Normal inspection. Non-tender. Normal alignment Pulmonary/Respiratory: Chest non-tender. Clear bilateral breath sounds, no crackles, bilateral wheezing heard in all lung chau, now improved Cardiovascular/Chest: Regular rate and rhythm. No murmurs. No JVD. Peripheral Pulses: 2+ Radial (R). 2+ Radial (L). 2+ Pedal (R). 2+ Pedal (L) Abdominal Exam: Normal bowel sounds. Soft. normal abdomen, no visible veins, Nontender. No hepatospenomegaly. No masses Ankle Exam: Negative ankle edema Lower extremities: Trace lower extremity edema Neuro/Mental Status: A&O x4. Coherent. Thoughts/Psych: Normal thought pattern. Appropriate mood and affect. Good judgement and insight Skin Exam: Normal inspection. Normal color. Warm. Dry laboratory and microbiology Laboratory Tests 05/24/24 06:22 Test 05/24/24 06:22 Range/Units Serum Glucose 167 H 74-106 mg/dL Microbiology Date/Time Source Procedure Growth Status 05/22/24 18:55 Blood Blood Culture - Preliminary NO GROWTH AFTER 24 HOURS OF INCUBATION. Resulted Labs and/or images reviewed: Labs reviewed by me, Image(s) reviewed by me Problem List/Assessment/Plan Problem List/Assessment/Plan Acute hypoxic/hypercarbic respiratory failure Community-acquired pneumonia, Gram-positive versus Gram-negative Acute exacerbation of COPD - patient titrated down to 1L O2 via NC. COVID and influenza negative - CXR: Development of bibasilar areas of infiltrate or atelectasis which has developed since previous study of 12/20/2021 - IV azithromycin, IV ceftriaxone - ipratropium and albuterol med nebs - IV methylprednisolone 40 mg b.i.d., now transitioning to p.o. prednisone 40 mg Possible acute on chronic diastolic heart failure - IV Lasix 40 mg once - BNP 57 - repeat echo ordered - we will continue to monitor Type 2 diabetes, Hb A1c 7.7 Hypertension, blood pressure on the softer side Coronary artery disease - mild sliding scale insulin Hyperkalemia, now improved - repleted with p.o. potassium 40 mEq PUD prophylaxis: protonix 40mg DVT prophylaxis: Levonox 40mg Goals of care: Full code, discussed for >16 minutes on 05/23/2024 Plan discussed with patient Plan discussed with Dr. Lux Plan discussed with: Patient, Other (RN) BILLIE LAM RESIDENT May 24, 2024 18:44
[2024-05-25] VITALS (14 sets, daily range): BP systolic 129–165; BP diastolic 57–78; PULSE 69–92; RESP 16–20; TEMP 36.4; O2SAT 95–100
[2024-05-25] MEDS: MELATONIN 5 MG TAB PO ONE (02:46)
--- NOTE | 2024-05-25 06:23 | DVHDSRES ---
Discharge Summary Date of Admission Resident Creating Document: BILLIE LAM RESIDENT May 22, 2024 at 22:41 Date of Discharge: May 25, 2024 Admitting Diagnosis shortness of breath and cough Labs/Diagnostic Data: Laboratory Results Test 05/25/24 06:08 05/24/24 06:22 05/23/24 11:30 05/23/24 10:55 POC Glucose 158 mg/dl (70-106) White Blood Count 13.3 10^3/uL (4.4-10.8) Red Blood Count 5.08 10^6/uL (4.5-5.90) Hemoglobin 15.2 g/dL (13.5-17.5) Hematocrit 45.2 % (41.0-53.0) Mean Corpuscular Volume 88.9 fL (80.0-100.0) Mean Corpuscular Hemoglobin 30.0 pg (28.0-32.0) Mean Corpuscular Hemoglobin Concent 33.7 g/dL (32.0-36.0) Red Cell Distribution Width 14.3 % (11.8-14.3) Platelet Count 399 10^3/uL (140-450) Mean Platelet Volume 8.5 fL (6.9-10.8) Neutrophils (%) (Auto) 73.0 % (37.0-80.0) Lymphocytes (%) (Auto) 16.8 % (10.0-50.0) Monocytes (%) (Auto) 9.8 % (0.0-12.0) Eosinophils (%) (Auto) 0.1 % (0.0-7.0) Basophils (%) (Auto) 0.3 % (0.0-2.0) Neutrophils # (Auto) 9.7 10 ^3/uL (1.6-8.6) Lymphocytes # (Auto) 2.2 10 ^3/uL (0.4-5.4) Monocytes # (Auto) 1.3 10 ^3/uL (0-1.3) Eosinophils # (Auto) 0 10 ^3/uL (0-0.8) Basophils # (Auto) 0 10 ^3/uL (0-0.2) Nucleated Red Blood Cells 0.1 % Sodium Level 138 mmol/L (136-145) Potassium Level 3.2 mmol/L (3.5-5.1) Chloride Level 99 mmol/L (98-107) Carbon Dioxide Level 32 mmol/L (20-31) Anion Gap 7 (5-15) Blood Urea Nitrogen 11 mg/dL (9-23) Creatinine 0.86 mg/dL (0.700-1.30) Glomerular Filtration Rate Calc 96 mL/min (>90) BUN/Creatinine Ratio 12.8 (10.0-20.0) Serum Glucose 167 mg/dL (74-106) Calcium Level 9.5 mg/dL (8.7-10.4) Urine Color Yellow (Yellow) Urine Clarity Turbid (Clear) Urine pH 6.5 (5.0-9.0) Urine Specific [place] 1.021 (1.001-1.035) Urine Protein 1+ (Negative) Urine Ketones Negative (Negative) Urine Blood 1+ /uL (Negative) Urine Nitrite Negative (Negative) Urine Bilirubin Negative (Negative) Urine Urobilinogen 2 mg/dL (Negative) Urine Leukocyte Esterase 3+ /uL (Negative) Urine RBC 10 /hpf (0 - 3) Urine WBC 45 /hpf (0 - 3) Urine Squamous Epithelial Cells None seen /hpf (<5) Urine Bacteria None seen /hpf (None Seen) Urine Mucus Few (None Seen) Urine Glucose 2+ mg/dL (Normal) Urine Opiates Screen Neg (NEGATIVE) Urine Fentanyl Screen Neg (NEGATIVE) Urine Barbiturates Screen Neg (NEGATIVE) Urine Phencyclidine Screen Neg (NEGATIVE) Urine Amphetamines Screen Neg (NEGATIVE) Urine Benzodiazepines Screen Neg (NEGATIVE) Urine Cocaine Screen Neg (NEGATIVE) Urine Cannabinoids Screen Neg (NEGATIVE) Influenza Type A Antigen Negative (Negative) Influenza Type B Antigen Negative (Negative) SARS-CoV-2 Antigen (Rapid) Negative (NEGATIVE) Test 05/23/24 02:01 05/22/24 18:55 05/22/24 18:45 Hemoglobin A1c 7.7 % A1C (<5.7) B-Type Natriuretic Peptide 57.97 pg/mL (0-100) Thyroid Stimulating Hormone (TSH) 1.35 uIU/mL (0.55-4.78) Lactic Acid Level 2.0 mmol/L (0.4-2.0) Other Laboratory Tests 05/24/24 06:22 Brief Hx & Hospital Course: Patient is a 68-year-old male with past medical history of CHF, COPD, CAD, type 2 diabetes, hypertension, dyslipidemia, who came in due to shortness of breath and cough. According to the patient for the past 1 week, he is experiencing dyspnea along with shortness of breaths and cough. Patient was noted to have SpO2 of 76 as reported by the EMS on scene. He denies having similar symptoms in the past, denies any sick contacts or recent travel. Patient notes cough is productive of a whitish sputum. Patient was put on 4 L of oxygen. Hospital course: Chest x-ray showed development of bibasilar areas of infiltrate or atelectasis which is developed previous study of 12/20/2021. Patient was started on IV azithromycin, IV ceftriaxone, ipratropium albuterol med nebs, IV methylprednisolone 40 mg b.i.d. which was eventually transitioned to p.o. prednisone 40 mg. Patient was also given IV Lasix 40 mg once. And continued on mild sliding scale insulin. On the day of discharge, patient appeared well and had stable vital signs. Patient was titrated to room air and did not experience any distress or dyspnea. He was discharged home with levofloxacin 500 mg once daily for 3 days. His hospital course was uncomplicated. General Appearance: Cooperative. Well developed. Well nourished. NAD Head Exam: Normal inspection Neck Exam: Normal inspection. Non-tender. Normal alignment Pulmonary/Respiratory: Chest non-tender. Clear bilateral breath sounds, no crackles, no wheezes Cardiovascular/Chest: Regular rate and rhythm. No murmurs. No JVD. Peripheral Pulses: 2+ Radial (R). 2+ Radial (L). 2+ Pedal (R). 2+ Pedal (L) Abdominal Exam: Normal bowel sounds. Soft. normal abdomen, no visible veins, Nontender. No hepatospenomegaly. No masses Ankle Exam: Negative ankle edema Lower extremities: No lower extremity edema Neuro/Mental Status: A&O x4. Coherent. Thoughts/Psych: Normal thought pattern. Appropriate mood and affect. Good judgement and insight Skin Exam: Normal inspection. Normal color. Warm. Dry Condition at Discharge: Good Final Diagnosis/Problems List Acute hypoxic/hypercarbic respiratory failure Community-acquired pneumonia, Gram-positive versus Gram-negative Acute exacerbation of COPD Possible acute on chronic diastolic heart failure, less likely Type 2 diabetes Hypertension Coronary artery disease Hyperkalemia Discharge Disposition: Home Discharge Instruct/Medications Follow Up/Referral: Please follow up with PCP in 1-2 weeks Medications: Levofloxacin 500 mg once daily for 3 days Discharge Statement: "Patient was advised to return to the ER or call 911 if any headaches, dizziness, shortness of breath, chest pain, abdominal pain, bleeding, fevers, or worsening of medical condition. Patient was counseled about treatment plan, medications, possible side effects, patientverbalized understanding. All questions were answered to the best of my ability. This discharge took greater then 30 minutes in planning, reviewing documentation, counseling the patient, and discussing with other team members." ASSESSMENT ASSESSMENT Assessment BILLIE LAM RESIDENT May 25, 2024 06:23
[2024-05-25 07:22] LABS: Anion Gap 7 (5-15); Chloride 98 mmol/L (98-107); Sodium 137 mmol/L (136-145)
[2024-05-25 07:23] LABS: Calcium 9.7 mg/dL (8.7-10.4)
[2024-05-25 07:28] LABS: BUN/Creatinine Ratio 12.5 (10.0-20.0); Blood Urea Nitrogen 11 mg/dL (9-23)
[2024-05-25 07:31] LABS: Carbon Dioxide 32 mmol/L (20-31); Glucose 134 mg/dL (74-106); Potassium 3.4 mmol/L (3.5-5.1)
[2024-05-25 07:34] LABS: Basophils # (auto) 0 10 ^3/uL (0-0.2); Basophils % (auto) 0.4 % (0.0-2.0); Eosinophils # (auto) 0 10 ^3/uL (0-0.8); Eosinophils % (auto) 0.1 % (0.0-7.0); Hematocrit 46.3 % (41.0-53.0); Hemoglobin 15.2 g/dL (13.5-17.5); Lymphocytes # (auto) 2.6 10 ^3/uL (0.4-5.4); Lymphocytes % (auto) 23.8 % (10.0-50.0); Mean Corpuscular Hemoglobin 29.5 pg (28.0-32.0); Mean Corpuscular Hgb Conc. 32.9 g/dL (32.0-36.0); Mean Corpuscular Volume 89.7 fL (80.0-100.0); Monocytes # (auto) 1.1 10 ^3/uL (0-1.3); Monocytes % (auto) 9.9 % (0.0-12.0); Neutrophils # (auto) 7.3 10 ^3/uL (1.6-8.6); Neutrophils % (auto) 65.8 % (37.0-80.0); Nucleated Red Blood Cells % 0.1 %; Platelet Count (auto) 424 10^3/uL (140-450); Red Blood Cells 5.17 10^6/uL (4.5-5.90); Red Cell Distribution Width 14.7 % (11.8-14.3); White Blood Cell 11.1 10^3/uL (4.4-10.8)
[2024-05-25] MEDS: POTASSIUM EFFERVESENT TAB 25 MEQ PO ONE (08:29)
[2024-05-25] MEDS ORDERED: LEVO500T91 PO (13:25)
[2024-05-25] MEDS ORDERED: MELATONIN 5 MG TAB PO ONE (22:00)
== END 2024-05-25 15:20 | disposition home or self-care (01) | DRG 871 ==
LOC: EDBD 17:56 → ER 18:01 → OVERFLOW 22:41 → WEST WING 05-23 15:38
PROVIDERS: ADMIT Student in an Organized Health Care Education/Training Program; ATTEND Student in an Organized Health Care Education/Training Program
DX: A41.9 Sepsis, unspecified organism (principal); I50.33 Acute on chronic diastolic (congestive) heart failure; J15.69 Pneumonia due to other Gram-negative bacteria; J96.01 Acute respiratory failure with hypoxia; J96.02 Acute respiratory failure with hypercapnia; J44.1 Chronic obstructive pulmonary disease with (acute) exacerbation; J44.0 Chronic obstructive pulmonary disease with (acute) lower respiratory infection; I50.9 Heart failure, unspecified; I48.91 Unspecified atrial fibrillation; E87.5 Hyperkalemia; I11.0 Hypertensive heart disease with heart failure; Z20.822 Contact with and (suspected) exposure to COVID-19; E87.6 Hypokalemia; E11.9 Type 2 diabetes mellitus without complications; I25.10 Atherosclerotic heart disease of native coronary artery without angina pectoris; Z86.73 Personal history of transient ischemic attack (TIA), and cerebral infarction without residual deficits; Z83.3 Family history of diabetes mellitus; Z82.49 Family history of ischemic heart disease and other diseases of the circulatory system; Z79.899 Other long term (current) drug therapy
CPT/HCPCS: 36415; 71045; 80048; 80307; 81001; 82962; 83036; 83605; 83880; 84132; 84443; 85025; 87040; 87426; 87804; 93005; 93306; 94640; 99291; G0378; J1815

== ENCOUNTER 2025-01-05 16:54 | Emergency (ER) | payer OTHER, MEDICARE ==
[~2025-01-05] VITALS: Ht 165.1 cm; Wt 104.5 kg
[~2025-01-05 16:54] MED LIST changes: -LEVO500T31 PO; +LEVO500T91 PO
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
[2025-01-05 19:57] VITALS: BP 170/72; PULSE 82; RESP 17; TEMP 97.9; O2SAT 92
[2025-01-05] MEDS: HYDROcodone-ACET 10/325MG TAB PO ONE (19:57)
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
--- NOTE | 2025-01-08 08:52 | ECG ---
[facility] Test Date: 2025-01-05 Test Time: 17:20:07 Pat Name: ROSARIO CHANDLER Department: [facility] ED Patient ID: [id number] Room: Gender: M Industrial Education Teacher: estuardo : 1955 Requested By: GIANFRANCO HOUSER Order Number: [id number] Reading MD: Josue Ochoa Measurements Intervals [place] Rate: 80 P: 69 RI: 137 QRS: 11 QRSD: 95 T: 32 QT: 393 QTc: 454 Interpretive Statements Sinus rhythm Abnormal R-wave progression, early transition Electronically Signed On 01-09-2025 14:33:06 PDT by Josue Ochoa Please click the below link to view image of tracing.
== END 2025-01-05 21:13 | disposition home or self-care (01) ==
LOC: ER 16:54 → EDUNIT# 16:54 → EDBD 16:54 → ER 21:13
DX: S13.4XXA Sprain of ligaments of cervical spine, initial encounter (principal); S20.212A Contusion of left front wall of thorax, initial encounter; I11.0 Hypertensive heart disease with heart failure; I50.9 Heart failure, unspecified; E11.9 Type 2 diabetes mellitus without complications; F41.9 Anxiety disorder, unspecified; E78.5 Hyperlipidemia, unspecified; J44.9 Chronic obstructive pulmonary disease, unspecified; I48.91 Unspecified atrial fibrillation; I25.10 Atherosclerotic heart disease of native coronary artery without angina pectoris; Z79.899 Other long term (current) drug therapy; F10.90 Alcohol use, unspecified, uncomplicated; Z88.2 Allergy status to sulfonamides; Z79.84 Long term (current) use of oral hypoglycemic drugs; Z79.82 Long term (current) use of aspirin; Z79.51 Long term (current) use of inhaled steroids; Z79.01 Long term (current) use of anticoagulants; Z86.73 Personal history of transient ischemic attack (TIA), and cerebral infarction without residual deficits; Z88.0 Allergy status to penicillin; V89.2XXA Person injured in unspecified motor-vehicle accident, traffic, initial encounter; Y93.89 Activity, other specified; Y92.488 Other paved roadways as the place of occurrence of the external cause; Y99.8 Other external cause status; Y90.9 Presence of alcohol in blood, level not specified
CPT/HCPCS: 71250; 72040; 93005